=== PATIENT | female | born 1945 | race Caucasian/White ===

== ENCOUNTER 2023-10-12 09:27 | Inpatient (IN) ==
[2023-10-12] MEDS ORDERED: SODIUM CHLORIDE 0.9% 250 ML IV PRN (09:47)
[2023-10-12] MEDS ORDERED: PANTOprazole 40 MG in SYRINGE 0 ML IV ONE (09:47)
[2023-10-12] MEDS ORDERED: SODIUM CHLORIDE 0.9% 1,000 ML IV SCH (10:00)
--- NOTE | 2023-10-12 10:04 | Emergency Department Note ---
Impression & Plan Signs and symptoms of anemia, Exertional shortness of breath, Acute GI bleeding ED Provider Note NAME: HIMA LOVE AGE: 78 SEX: F : 1945 ARRIVES VIA: Walk-In INFORMANT: Patient ED PROVIDER(S): Jose Lord DO CHIEF COMPLAINT: weak HPI: Patient is a 78-year-old female who presents to the ER with a past medical history of of COPD, smoking, lung cancer with metastasis to the brain for weakness. She notes she has exertional shortness of breath and weakness which has been going on for the past several weeks. She was seen and evaluated here yesterday. She was referred back in today by her PCP as her hemoglobin was found to be 7 yesterday and dropped from tens. Denies any chest pain. No belly pain, nausea, vomiting, or diarrhea. Has been using Imodium for the diarrhea. Admits to blood in her stool intermittently and dark stool. ADDITIONAL HISTORY OBTAINED: Per HPI Chronic Medical/Social Conditions Affecting Care: Per HPI PAST MEDICAL HISTORY:See Below PAST SURGICAL HISTORY:See Below FAMILY HISTORY:See Below SOCIAL HISTORY:See Below HOME MEDICATIONS:See Below ALLERGIES:See Below VITALS:See Below PHYSICAL EXAMINATION: GENERAL: Sitting up in bed, alert, well appearing, well nourished, no distress, non-toxic EYE EXAM: normal conjunctiva. PERRL and EOM's grossly intact. OROPHARYNX: no exudate, no erythema, lips, buccal mucosa, and tongue normal and mucous membranes are moist NECK: supple, no nuchal rigidity, no adenopathy, non-tender LUNGS: Clear to auscultation. Normal chest wall mechanics HEART: no murmurs, S1 normal and S2 normal ABDOMEN: abdomen soft, non-tender, normo-active bowel sounds, no masses, no rebound or guarding. RECTAL: Heme positive as she gave a stool sample UPPER EXTREMITIES: upper extremities are grossly normal. LOWER EXTREMITIES: No pitting edema. NEURO EXAM: Normal sensorium, cranial nerves II-XII grossly intact, normal speech, no gross weakness of arms, no gross weakness of legs. MEDICAL DECISION MAKING: Patient is a 78-year-old female who presents the ER for above-stated complaint. IV was established blood work was obtained. Labs show no significant leukocytosis. Hemoglobin 7.4 down from baseline of 12. Platelets were low. INR unremarkable. BMP with mild hypokalemia at 3.3. Mag mildly low at 1.1. LFTs was unremarkable. Stool was C. difficile positive after admission. Patient was typed and crossed and given 2 units PRBCs while in the ER. I obtained consent. Discussed with the hospitalist minute for further workup. Consults/Care Managements Discussions: Per MDM Triage Nursing notes reviewed. Limited review of prior medical records performed Vital Signs: reviewed and remarkable for hypotension Differential diagnosis: Differential diagnosis includes etiologies such as diverticulitis, diverticulosis, AVM, coagulopathy, colitis, inflammatory bowel disease, malignancy, Wendy-Ross tear, esophagitis, peptic ulcer disease, variceal bleed, gastritis, epistaxis, fissure, hemorrhoids, as well as others were entertained. ER treatment provided: See below Diagnostics interpreted by me include EKG and cardiac monitoring as listed below: -Cardiac Monitoring: An order was placed for continuous cardiac monitoring. The monitor shows a rate of 90 with sinus rhythm. -ECG: none -Laboratory studies:Interpreted by me as stated above in MDM and shown below. Imaging studies: Xrays: As interpreted by me:none CTs show: CT of the head per my preliminary interpretation showed no obvious large bleed CT head per radiology showed no acute pathology Procedures:none Critical Care: I have personally spent 35 minutes of critical care time in the direct management of this patient. This includes bedside care, interpretation of diagnostic studies, and testing, discussion with consultants, patient, and family members, and other required patient management activities. This 35 minutes is in excess of all separately billable procedures. Past Med/Surg History Medical History CKD (chronic kidney disease) stage 3, GFR 30-59 ml/min CAD in [place] artery History of CVA (cerebrovascular accident) PVD (peripheral vascular disease) Subclavian arterial stenosis Metastatic lung cancer (metastasis from lung to other site) Ex-smoker Allergic rhinitis with postnasal drip COPD with emphysema Surgical History S/P cardiac cath 2006, 2007, 2015, 2018, 2019 Stents in 2009, 2010, 2019 S/P tonsillectomy and adenoidectomy History of hysterectomy S/P appendectomy S/P TAVR (transcatheter aortic valve replacement) Social History (Updated 10/12/23 @ 12:36 by Zoya Mckinley PA-C) Smoking Status: Never smoker Tobacco Type: Cigarettes Age Started Using Tobacco: 17; Age Quit Using Tobacco: 71; packs per day: 2; Hx Alcohol Use: Yes Alcohol type: wine Preferred Language: Mongolian Feels Safe at Home: Yes Allergies Allergies Allergy/AdvReac Type Severity Reaction Status Date / Time bee venom protein (honey bee) Allergy Severe Swelling Verified 10/12/23 11:54 of Lip/Tongue/Throat prednisone Allergy itchy Verified 10/12/23 11:54 macadamia Allergy Severe Swelling Uncoded 10/12/23 12:11 of Lip/Tongue/Throat Home Meds Home Medications Medication Instructions Recorded Confirmed acetaminophen 650 mg 650 mg PO Q8H PRN Pain 10/12/23 10/12/23 tablet,extended release albuterol sulfate 90 mcg/actuation 2 puff inhalation Q6 PRN Shortness 10/12/23 10/12/23 aerosol inhaler Of Breath Or Wheezing aspirin 81 mg tablet,delayed 81 mg PO DAILY 10/12/23 10/12/23 release clopidogrel 75 mg tablet 75 mg PO QAM 10/12/23 10/12/23 coenzyme Q10 100 mg capsule 100 mg PO DAILY 10/12/23 10/12/23 (CoQ-10) coffee extract 100 mg-phosphatidyl 1 cap PO DAILY 10/12/23 10/12/23 serine 100 mg capsule (Neuriva Original) cyanocobalamin (vitamin B-12) 100 100 mcg PO DAILY 10/12/23 10/12/23 mcg tablet dexamethasone 4 mg tablet 4 mg PO TID PRN .. 10/12/23 10/12/23 lidocaine-prilocaine 2.5 %-2.5 % 1 applic topical DIRECTED PRN 10/12/23 10/12/23 topical cream .Skin over mediport losartan 50 mg tablet 50 mg PO QAM 10/12/23 10/12/23 omeprazole 20 mg capsule,delayed 20 mg PO DAILY 10/12/23 10/12/23 release ondansetron HCl 8 mg tablet 8 mg PO Q8 PRN Nausea And Vomiting 10/12/23 10/12/23 prochlorperazine maleate 10 mg 10 mg PO Q6 PRN Nausea 10/12/23 10/12/23 tablet rosuvastatin 20 mg tablet 20 mg PO QAM 10/12/23 10/12/23 umeclidinium 62.5 mcg-vilanterol 1 inh inhalation DAILY 10/12/23 10/12/23 25 mcg/actuation powdr for inhalation (Anoro Ellipta) vit C 250 mg-E 90 mg-zinc 40 1 tab PO DAILY 10/12/23 10/12/23 mg-copper 1 ck-yropmn-wrrnbu chew tablet (PreserVision AREDS-2) Results & Data (ED) Vital Signs Vital Signs - 24 hr 10/12/23 09:36 10/12/23 11:49 10/12/23 11:50 Temperature 36.5 C Temperature Source Temporal Artery Scan Pulse Rate 102 H 85 Pulse Rate [Right Finger] 84 Pulse Rhythm Regular Regular Respiratory Rate 20 16 18 Respiratory Effort / Characteristics Non-Labored Spontaneous Non-Labored Spontaneous Respiratory Depth Normal Normal Blood Pressure 88/46 L Blood Pressure [Right Arm] 108/57 L Blood Pressure Mean 60 Blood Pressure Mean [Right Arm] 74 Pulse Oximetry 97 100 100 Oxygen Delivery Method Room Air Room Air Room Air Sepsis Recent Fever Within 48 Hours No Sepsis New/Unexplained Change in Mental Status No Sepsis Action Taken by Nursing No Action Required Laboratory Data 10/12/23 09:55 10/12/23 09:55 Lab Results 10/12/23 10/12/23 10/12/23 Range/Units 09:55 10:22 10:33 WBC 6.02 (4.8-10.8) K/ul RBC 2.31 L (4.20-5.40) M/uL Hgb 7.4 L (12.0-16.0) g/dl Hct 22.7 L (37.0-47.0) % MCV 98.3 (80.0-100.0) fL MCH 32.0 (25.0-34.0) pg MCHC 32.6 (32.0-36.0) g/dL RDW Std Deviation 45.3 (36.4-46.3) fL RDW Coeff of Bruno 13.0 (11.5-14.5) % Plt Count 84 L D (130-400) K/uL MPV 11.6 (9.4-12.4) fL Immature Gran % (Auto) 3.2 % Neut % (Auto) 58.4 % Lymph % (Auto) 18.6 % Brantley % (Auto) 18.1 % Eos % (Auto) 1.5 % Baso % (Auto) 0.2 % Neut # (Auto) 3.52 (1.40-6.50) K/uL Lymph # (Auto) 1.12 L (1.20-3.40) K/uL Brantley # (Auto) 1.09 H (0.11-0.59) K/uL Eos # (Auto) 0.09 (0.00-0.50) K/uL Baso # (Auto) 0.01 (0.00-0.20) K/uL Immature Gran # (Auto) 0.19 (0.01-0.20) K/uL Toxic Granulation 1+ Dohle Bodies 1+ Polychromasia 1+ PT 11.9 (9.0-12.0) Seconds INR 1.1 (0.9-1.1) APTT 30 (21-31) Seconds PTT Ratio 1.1 Sodium 137 (136-145) mmol/L Potassium 3.3 L (3.5-5.1) mmol/L Chloride 106 (98-107) mmol/L Carbon Dioxide 21 (21-32) mmol/L Anion Gap 10 (3-11) BUN 19 (6-23) mg/dl Creatinine 1.09 D (0.6-1.2) mg/dl Est Cr Clr Drug Dosing 37.1 ml/min Est GFR ( Amer) 56.7 ml/min Est GFR (Non-Af Amer) 48.9 ml/min BUN/Creatinine Ratio 17.4 (10-20) Glucose 105 H (70-99(Fasting)) mg/dl Calcium 8.1 L (8.6-10.3) mg/dl Magnesium 1.1 L (1.7-2.4) mg/dl Total Bilirubin 0.4 (0.2-1.0) mg/dl AST 21 (13-39) U/L ALT 12 (7-52) U/L Alkaline Phosphatase 76 (34-104) U/L Total Protein 5.9 L (6.0-8.3) gm/dl Albumin 3.2 L (3.4-5.0) gm/dl Globulin 2.7 (2.5-4.0) gm/dl Albumin/Globulin Ratio 1.2 (0.9-2) SARS-CoV-2, RNA, NAAT NEGATIVE (NEGATIVE) Blood Type O Positive Blood Type Recheck O Positive Antibody Screen NEGATIVE Crossmatch See Detail Administered Medications Discontinued Medications Sodium Chloride (Nss) 1,000 mls @ 999 mls/hr IV .Q1H1M LUCILLE Stop: 10/12/23 11:00 Last Infusion: 10/12/23 14:22 Dose: Infused Documented By: Admin: 10/12/23 11:40 Dose: 999 mls/hr Documented By: CHARMAINE Pantoprazole Sodium 40 mg/ (Syringe) 10 mls @ 5 mls/min IV NOW ONE Stop: 10/12/23 09:48 Last Admin: 10/12/23 11:41 Dose: 5 mls/min Documented By: CHARMAINE Sodium Chloride (Nss) 1,000 mls @ 999 mls/hr IV .Q1H1M LUCILLE Stop: 10/12/23 12:30 Last Infusion: 10/12/23 14:22 Dose: Infused Documented By: Admin: 10/12/23 11:40 Dose: 999 mls/hr Documented By: CHARMAINE Imaging Data Radiologist's Impression: Head CT 10/12/23 10:27 CT head/brain wo con CLINICAL HISTORY: 78 years-old Female with off balance w/ cancer. Acute dizziness TECHNIQUE: Multiple axial CT images of the head were obtained without contrast. A dose lowering technique was utilized adhering to the principles of ALARA. CT DOSE: 703.85 mGy.cm COMPARISON: Brain MRI 08/24/2023 FINDINGS: No acute intracranial hemorrhage, midline shift, hydrocephalus, acute territorial ischemia or abnormal extra-axial collection. Involutional changes with chronic microvascular ischemic disease. Encephalomalacia again noted within the left occipital lobe. Fluid noted enhancing intracranial metastasis are not visualized on this noncontrast study. No new areas of vasogenic edema identified. The calvarium is intact. Bilateral lens repair. The paranasal sinuses, mastoid air cells, and middle ear cavities are clear. IMPRESSION: 1. No acute intracranial abnormality. 2. The previously noted small enhancing intracranial metastasis described on the contrast-enhanced MRI from 08/24/2023 are not visualized on this noncontrast CT examination. 3. No new areas of vasogenic edema, significant mass effect or midline shift. 4. Chronic findings as above. ACT 112: Negative or not required by law. The above report was generated using voice recognition software. It may contain grammatical, syntax or spelling errors. Electronically signed by: Reji Stone M.D. 10/12/2023 10:56 AM Discharge Plan Visit Data Chief Complaint: Referred by Doctor Stated Complaint: BLOOD TRANSFUSION ED Provider: Jose Lord Discharge Problem: Signs and symptoms of anemia, Exertional shortness of breath, Acute GI bleeding
[2023-10-12 10:21] LABS: Hematocrit (blood only) 22.7 % (37.0-47.0); Hemoglobin 7.4 g/dl (12.0-16.0); Mean Corpuscular Hgb Conc 32.6 g/dL (32.0-36.0); Mean Corpuscular Volume 98.3 fL (80.0-100.0); Mean Platelet Volume 11.6 fL (9.4-12.4); Platelet Count 84 K/uL (130-400); RDW Standard Deviation 45.3 fL (36.4-46.3); Red Blood Count 2.31 M/uL (4.20-5.40); White Blood Count 6.02 K/ul (4.8-10.8)
[2023-10-12 10:39] LABS: Albumin Globulin Ratio 1.2 (0.9-2); Albumin Level 3.2 gm/dl (3.4-5.0); BUN Creatinine Ratio 17.4 (10-20); Bilirubin,Total 0.4 mg/dl (0.2-1.0); Calcium 8.1 mg/dl (8.6-10.3); Creatinine Clr Calc Pharmacy 37.1 ml/min; Est GFR (African American) 56.7 ml/min; Est GFR (Non-African American) 48.9 ml/min; Globulin 2.7 gm/dl (2.5-4.0); Potassium 3.3 mmol/L (3.5-5.1); Total Protein 5.9 gm/dl (6.0-8.3)
[2023-10-12 10:54] LABS: Basophils # (auto) 0.01 K/uL (0.00-0.20); Basophils % (auto) 0.2 %; Dohle Bodies 1+; Eosinophils # (auto) 0.09 K/uL (0.00-0.50); Eosinophils % (auto) 1.5 %; INR 1.1 (0.9-1.1); Immature Granulocytes # (auto) 0.19 K/uL (0.01-0.20); Immature Granulocytes % (auto) 3.2 %; Lymphocytes # (auto) 1.12 K/uL (1.20-3.40); Lymphocytes % (auto) 18.6 %; Monocytes # (auto) 1.09 K/uL (0.11-0.59); Monocytes % (auto) 18.1 %; Neutrophils # (auto) 3.52 K/uL (1.40-6.50); Neutrophils % (auto) 58.4 %; Partial Thromboplastin Ratio 1.1; Partial Thromboplastin Time 30 Seconds (21-31); Polychromasia 1+; Prothrombin Time 11.9 Seconds (9.0-12.0); Toxic Granulation 1+
--- NOTE | 2023-10-12 10:57 | CT Scan Report ---
CT head/brain wo con CLINICAL HISTORY: 78 years-old Female with off balance w/ cancer. Acute dizziness TECHNIQUE: Multiple axial CT images of the head were obtained without contrast. A dose lowering tech nique was utilized adhering to the principles of ALARA. CT DOSE: 703.85 mGy.cm COMPARISON: Brain MRI 08/24/2023 FINDINGS: No acute intracranial hemorrhage, midline shift, hydrocephalus, acute territorial ischemia or abnorma l extra-axial collection. Involutional changes with chronic microvascular ischemic disease. Encephalo malacia again noted within the left occipital lobe. Fluid noted enhancing intracranial metastasis are not visualized on this noncontrast study. No new areas of vasogenic edema identified. The calvarium is intact. Bilateral lens repair. The paranasal sinuses, mastoid air cells, and middle ear cavities are clear. IMPRESSION: 1. No acute intracranial abnormality. 2. The previously noted small enhancing intracranial metastasis described on the contrast-enhanced MR I from 08/24/2023 are not visualized on this noncontrast CT examination. 3. No new areas of vasogenic edema, significant mass effect or midline shift. 4. Chronic findings as above. ACT 112: Negative or not required by law. The above report was generated using voice recognition software. It may contain grammatical, syntax o r spelling errors. Electronically signed by: Reji Stone M.D. 10/12/2023 10:56 AM
--- OUTSIDE RECORDS SUMMARY | 2023-10-12 11:00 | External Medical Summary | Summary of Care ---
Author Name Unknown Organization [facility] Address [address] [place] [address] Phone [phone] Care Team Providers Care Supervisor Shop Name Role Phone Jennie Carbajal JULIANA Primary Care Provider [phone] Reason for Visit * Reason Onset Date Comments Emergency Department Follow-Up 10/10/2023 Encounter Details Date Type Department Care Team (Late st Contact Info) Description 10/10/2023 Telephone Family Practice [facility] [address] [place] [address] Carlos Le MD [address] [place] [id number] Emergency Department Follow-Up Allergies Active Allergy Reactions Criticality Noted Date Comments Bee Venom 04/25/2023 Macadamia Nut Oil Anaphylaxis High 04/03/2023 SEVERE Prednisone Itching 04/03/2023 documented as of this encounter (statuses as of 10/12/2023) Medications Medication Sig Dispensed Refills Start Date End Date Status Co Q-10 100 MG Oral Capsule Take 6 Capsules by mouth in the morning. 0 Active Neuriva Oral Capsule Take by mouth. 0 Active Acetaminophen ER 650 MG Oral Tablet Extended Release (Tylenol ER) Take 1 Tablet by mouth every 8 hours as needed. 0 Active PreserVision AREDS 2 Oral Tablet Chewable Take by mouth. 0 Active Aspirin 81 MG Oral Tablet Delayed Release TAKE ONE TABLET BY MOUTH IN THE MORNING 90 Tablet 3 04/03/2023 04/02/2024 Active Rosuvastatin Calcium 20 MG Oral Tablet (Crestor) TAKE ONE TABLET BY MOUTH everyday 90 Tablet 3 04/03/2023 04/02/2024 Active Metoprolol Succinate ER 25 MG Oral Tablet Extended Release 24 Hour (toPROL XL) TAKE ONE TABLET BY MOUTH IN THE MORNING 90 Tablet 3 04/03/2023 04/02/2024 Active Losartan Potassium 50 MG Oral Tablet (Cozaar) TAKE ONE TABLET BY MOUTH IN THE MORNING 90 Tablet 3 04/03/2023 04/02/2024 Active Cyanocobalamin 1000 MCG Oral Tablet Take 1 Tablet by mouth in the morning. 0 Active Albuterol Sulfate HFA 108 (90 Base) MCG/ACT Inhalation Aerosol Solution inhale 2 puffs by mouth every 6 hours As Needed for Shortness Of Breath Or Wheezing 18 g 3 04/26/2023 Active Anoro Ellipta 62.5-25 MCG/ACT Inhalation Aerosol Powder Breath Activated (umeclidinium-vilante rol) Inhale 1 Puff by mouth daily. 180 Each 1 04/26/2023 Active Clopidogrel Bisulfate 75 MG Oral Tablet (pLAVix) Take 1 Tablet by mouth in the morning. 90 Tablet 3 05/20/2023 Active Isosorbide Mononitrate ER 30 MG Oral Tablet Extended Release 24 Hour (Imdur)Indications:Co ronary artery disease involving [place] coronary artery of [place] heart without angina pectoris Take 0.5 Tablets by mouth in the morning. 45 Tablet 3 06/21/2023 Active Omeprazole 20 MG Oral Tablet Delayed Release Disintegrating Take by mouth. 0 Active Prochlorperazine Maleate 10 MG Oral Tablet (Compazine)Indication s:Small cell lung cancer (HCC) Take 1 Tablet by mouth every 6 hours as needed for Nausea. 30 Tablet 0 08/22/2023 Active Ondansetron HCl 8 MG Oral TabletIndications:Sma ll cell lung cancer (HCC) Take 1 Tablet by mouth every 8 hours as needed for Nausea. 30 Tablet 0 08/22/2023 Active dexAMETHasone 4 MG Oral Tablet (Decadron)Indications :Metastasis to brain (HCC) Take 1 Tablet by mouth in the morning and 1 Tablet at noon and 1 Tablet before bedtime. 40 Tablet 0 09/19/2023 Active Lidocaine-Prilocaine 2.5-2.5 % External Cream (Emla)Indications:Sma ll cell lung cancer (HCC) Apply topically to affected area as needed for Pain. APPLY TO SKIN OVER MEDIPORT & COVER 1HR PRIOR TO ACCESSING. 90 g 1 09/21/2023 Active documented as of this encounter (statuses as of 10/12/2023) Active Problems Problem Noted Date Diagnosed Date Lung cancer metastatic to brain 10/10/2023 COPD, moderate 10/10/2023 History of CVA (cerebrovascular accident) 2022 Chronic kidney disease, stage 3a 08/28/2023 Overview: Per CKD protocol PVD (peripheral vascular disease) 08/23/2023 Carotid stenosis, non-symptomatic, bilateral 05/2023 Subclavian arterial stenosis 08/23/2023 Encounter for antineoplastic chemotherapy 2022 Small cell lung cancer 08/22/2023 Coronary artery disease invo lving [place] coronary artery of [place] heart without angina pectoris 05/01/2023 S/P TAVR (transcatheter aortic valve replacement ) 05/01/2023 documented as of this encounter (statuses as of 10/12/2023) Resolved Problems Problem Noted Date Diagnosed Date Resolved Date Allergies 05/01/2023 10/10/2023 Elevated liver enzymes 05/01/202310/10 documented as of this encounter (statuses as of 10/12/2023) Immunizations Name Administration Dates Next Due COVID-19 mRNA, LNP-s, No Pre serve, 2-Dose Series (Moderna) 06/29/2021,06/02/2021 Seasonal Influenza Virus Vac cine, Unspecified Formulation 07/03/2014 Seasonal Influenza, Quadrivalent Hd (Fluzone Hd) 06/29/2023 TDAP (age 11 and older)(Adacel) 08/22/2013 Varicella Zoster Vaccine (Adult) 08/22/2013 documented as of this encounter Social History Tobacco Use Types Packs/Day Years Used Date Smoking Tobacco: Former Cigarettes 2 53 0 10/16/1961 - 10/16/2014 Alcohol Use Standard Drinks/Week Comments Yes 0 (1 standard drink = 0.6 oz pur e alcohol) daily Sex and Gender Information Value Date Recorded Sex Assigned at Not on file Gender Identity Not on file Sexual Orientation Not on file Job Start Date Occupation Industry Not on file Not on file Not on file documented as of this encounter Miscellaneous Notes * Telephone Encounter - Bernice Gonsalez OSA - 10/12/2023 8:51 AM EST LM for pt or EC to call back to schedule an ER f/u (ok to use hospital d/c visit type) * Telephone Encounter - Ravin James OSA - 10/11/2023 3:11 PM EST Patient needs ED Follow-up. Did patient decline to see other providers in their home clinic? : NO If New Patient - Were surrounding clinics offered? N/A Please see call details. * Telephone Encounter - Jennifer Peña LPN - 10/11/2023 8:48 AM EST Called pt, no answer. Left message that she should go to ER. Called Radha, Sibling. S/w brother in law. She thought his was taking her to [facility] now. I advised that was good, and that is where she should go. She needs IV fluids and we do not do that here.Also it was advised by Dr. Le and her Oncologist that she go to ER. * Telephone Encounter - Carlos Le MD - 10/10/2023 9:20 PM EST Call patient and have her go to the ER right now. Both our office and heme/onc recommended it and it appears she may not have gone. She has a fever and is decompensating. She has lung cancer with brain metastasis. Office visit today not appropriate. Dr. Le documented in this encounter Plan of Treatment Upcoming Encounters Date Type Department Care Team (Late st Contact Info) Description 10/18/2023 8:10 AM EST Laboratory [facility] [address] [place] [id number] [place], Lab Scenery [address] [facility] [place], [place] [address] 10/18/2023 9:00 AM EST Hem/Onc Treatment Hematology/Oncology Treatment, [place] [address] [place] [address] Rand[place], Chair 6 Hem Onc Scenery [address] [place], [place] [address] 10/19/2023 9:00 AM EST Hem/Onc Treatment Hematology/Oncology Treatment, [place] [address] [place] [address] Randee, Chair 6 Hem Onc Scenery [address] [place] [address] 10/20/2023 9:00 AM EST Hem/Onc Treatment Hematology/Oncology Treatment, [place] [address] [place] [address] Randee, Chair 3 Hem Onc Scenery [address] [place], [place] [address] 11/08/2023 8:30 AM EST Laboratory Laboratory [facility] [place] [address] [place], [place] [id number] Randee, Lab Scenery [address] [place], [place] [address] 11/08/2023 9:00 AM EST Office Visit Hematology/Oncology [facility] [place] [address] [place], [place] [address] Leny Harmon MD [address] [place], [place] [address] 11/08/2023 9:30 AM EST Hem/Onc Treatment Hematology/Oncology Treatment, [place] [address] [facility], [place] [address] 11/09/2023 9:00 AM EST Hem/Onc Treatment Hematology/Oncology Treatment, [place] [address] [place] [address] Randee, Chair 3 Hem Onc Scenery [address] [place], [place] [address] 11/10/2023 9:00 AM EST Hem/Onc Treatment Hematology/Oncology Treatment, [place] [address] [place] [address] Randee, Chair 3 Hem Onc Scenery [address] [place] [address] 12/26/2023 3:00 PM EDT Office Visit Family [facility] [address] [place] [address] Arcadio Gonsalez, [address] [place] [id number] Health Maintenance Due Date Last Done Comments Depression Screening 1957 Albumin/Creatinine Ratio 1964 Alpha-1 Antitrypsin 1964 CKD PHOS USE SMARTSET 61436 1964 Hepatitis C Screening 1963 DXA Scan 2011 Zoster Vaccines (1 of 2) 10/17/2013 08/22/2013 Pneumococcal Vaccine: 65+ Years (2 - PCV) 07/30/2014 07/30/2013 COVID-19 Vaccine (3 - Moderna risk series) 07/27/2021 06/29/2021, 06/02/2021 DTaP,Tdap,and Td Vaccines (2 - Td or Tdap) 08/22/2023 08/22/2013 GFR 03/23/2024 09/22/2023, 12/02/2023, 08/30/2023, Additional history exists O2 ASSESSMENT COMPLETED IN PAST YEAR FOR COPD 08/04/2024 08/04/2023 CKD HGB USE SMARTSET 13018 09/22/202409/22, 09/22/2023, 09/19/2023, Additional history exists Influenza Vaccine (FLU shot) Completed , 07/03/2014, 07/03/2014, Additional history exists GARDASIL-HPV IMMUNIZATION SERIES Aged Out No longer eligible based on patient's age to complete this topic Hepatitis B Aged Out No longer eligi ble based on patient's age to complete this topic MENINGOCOCCAL (MENACTRA/MENVEO) Aged Out No longer eligible based on patient's age to complete this topic documented as of this encounter Medical Devices Implanted Type Area Speech Correction Assistant Device Identifier Shelf Expiration Date Model / Serial / Lot Port Implant W/8f Poly Cath - [id number] Implanted:Qty : 1 on 09/12/2023 by Joaquin Stewart DO at OR [facility] Right: Chest CR BARD : PERIPHERAL VASCULAR [id number] 03/15/2025 [id number] / / [id number] documented as of this encounter Advance Directives Documents on File Type Date Recorded Patient Antique Dealer Expl anation Advance Directives and Living Will 08/15/2023 ADVANCE DIRECTIVE / LIVING WILL Care Teams Supervisor Shop Relationship Specialty Start Date End Date Jennie Carbajal CRNP [address] [place] [address] PCP - General Nurse Practitioner 04/03/23 documented as of this encounter
--- OUTSIDE RECORDS SUMMARY | 2023-10-12 11:00 | External Medical Summary | Summary of Care ---
Author Name Unknown Organization [facility] Address [address] [place] [address] Phone [phone] Care Team Providers Care Real Estate Lawyer Name Role Phone Jennie Carbajal JULIANA Primary Care Provider [phone]- [phone] Reason for Visit * Reason Onset Date Comments Emergency Department Follow-Up 10/10/2023 Encounter Details Date Type Department Care Team (Late st Contact Info) Description 10/10/2023 Telephone Family Practice [facility] [address] [place] [address] Carlos Le MD [address] [place] [address] Emergency Department Follow-Up Allergies Active Allergy Reactions Criticality Noted Date Comments Bee Venom 04/25/2023 Macadamia Nut Oil Anaphylaxis High 04/03/2023 SEVERE Prednisone Itching 04/03/2023 documented as of this encounter (statuses as of 10/11/2023) Medications Medication Sig Dispensed Refills Start Date [...] 24 Hour (Imdur)Indications:Co ronary artery disease involving [place] coronary artery of [place] heart without angina pectoris Take 0.5 Tablets [...] as of this encounter (statuses as of 10/11/2023) Active Problems Problem Noted Date Diagnosed Date Lung cancer metastatic to brain 10/10/2023 COPD, moderate 10/10/2023 History of CVA (cerebrovascular accident) 2022 Chronic kidney disease, stage 3a 08/28/2023 Overview: Per CKD protocol PVD (peripheral vascular disease) 08/23/2023 Carotid stenosis, non-symptomatic, bilateral 05/2023 Subclavian arterial stenosis 08/23/2023 Encounter for antineoplastic chemotherapy 2022 Small cell lung cancer 08/22/2023 Coronary artery disease invo lving [place] coronary artery of [place] heart without angina pectoris 05/01/2023 S/P TAVR (transcatheter aortic valve replacement ) 05/01/2023 documented as of this encounter (statuses as of 10/11/2023) Resolved Problems Problem Noted Date Diagnosed Date Resolved Date Allergies 05/01/2023 10/10/2023 Elevated liver enzymes 05/01/202310/10 documented as of this encounter (statuses as of 10/11/2023) Immunizations Name Administration Dates Next Due COVID-19 [...] encounter Miscellaneous Notes * Telephone Encounter - Ravin James OSA [...] She thought his was taking her to [facility] now. I advised that was good, [...] 10/18/2023 8:10 AM EST Laboratory Laboratory [facility] [address] [place] [id number] [place], Lab Scenery [address] [place] [address] 10/18/2023 9:00 AM EST Hem/Onc Treatment Hematology/Oncology Treatment, [place] [address] [place] [address] [place], Chair 6 Hem Onc Scenery [address] [place] [address] 10/19/2023 9:00 AM EST Hem/Onc Treatment Hematology/Oncology Treatment, [place] [address] [place] [address] Randee, Chair 6 Hem Onc Scenery [address] [place] [address] 10/20/2023 9:00 AM EST Hem/Onc Treatment Hematology/Oncology Treatment, [place] [address] [place] [address] Rand[place], Chair 3 Hem Onc Scenery [address] [place] [address] 11/08/2023 8:30 AM EST Laboratory Laboratory [facility] [place] [address] [place], [place] [id number] [place], Lab Scenery [address] [place] [address] 11/08/2023 9:00 AM EST Office Visit Hematology/Oncology [facility] [address] [place], [place] [address] Leny Harmon MD [address] [place], [place] [address] 11/08/2023 9:30 AM EST Hem/Onc Treatment Hematology/Oncology Treatment, [place] [address] [place] [address] 11/09/2023 9:00 AM EST Hem/Onc Treatment Hematology/Oncology Treatment, [place] [address] [place] [address] Rand[place], Chair 3 Hem Onc Scenery [address] [place] [address] 11/10/2023 9:00 AM EST Hem/Onc Treatment Hematology/Oncology Treatment, [place] [address] [place] [address] Rand[place], Chair 3 Hem Onc Scenery [address] [place] [address] 12/26/2023 3:00 PM EDT Office Visit Family Practice [facility] [address] [place] [address] Arcadio Gonsalez, [address] [place] [address] Health Maintenance Due Date Last Done Comments Depression Screening 1957 Albumin/Creatinine Ratio 1963 Alpha-1 Antitrypsin 1964 CKD PHOS USE SMARTSET 69565 1964 Hepatitis C Screening 1963 DXA Scan 2011 Zoster Vaccines (1 of 2) 10/17/2013 08/22/2013 Pneumococcal Vaccine: 65+ Years (2 - PCV) 07/30/2014 07/30/2013 COVID-19 Vaccine (3 - Moderna risk series) 07/27/2021 06/29/2021, 06/02/2021 DTaP,Tdap,and Td Vaccines (2 - Td or Tdap) 08/22/2023 08/22/2013 GFR 03/23/2024 09/22/2023, 12/0 02/2023, 08/30/2023, Additional history exists O2 ASSESSMENT COMPLETED IN PAST YEAR FOR COPD 08/04/2024 08/04/2023 CKD HGB USE SMARTSET 26410 09/22/202409/22, 09/22/2023, 09/19/2023, Additional history exists Influenza [...] this encounter Medical Devices Implanted Type Area Adolescent Psychiatrist Device Identifier Shelf Expiration Date Model / Serial / Lot Port Implant W/8f Poly Cath - [id number] Implanted:Qty : 1 on 09/12/2023 by Joaquin Stewart DO at OR [facility] Right: Chest CR BARD : PERIPHERAL VASCULAR [id number] 03/15/2025 [id number] / / [id number] documented as of this encounter Advance Directives Documents on File Type Date Recorded Patient Investigative Analyst Expl anation Advance Directives and Living Will 08/15/2023 ADVANCE DIRECTIVE / LIVING WILL Care Teams Real Estate Lawyer Relationship Specialty Start Date End Date Jennie Carbajal CRNP [address] [place] [id number] PCP - General Nurse Practitioner 04/03/23 documented as of this encounter
--- OUTSIDE RECORDS SUMMARY | 2023-10-12 11:00 | External Medical Summary | Summary of Care ---
Author Name Unknown Organization [facility] Address [address] [facility] [place] [address] Phone [phone] Care Team Providers Care Serologist Name Role Phone Jennie Carbajal JULIANA Primary Care Provider [phone]- [phone] Reason for Visit * Reason Onset Date Comments Emergency Department Follow-Up 10/10/2023 Encounter Details Date Type Department Care Team (Late st Contact Info) Description 10/10/2023 Telephone Family Practice [facility] [address] [place] [address] Carlos Le MD [address] [place] [address] Emergency Department Follow-Up Allergies Active Allergy Reactions [...] 24 Hour (Imdur)Indications:Co ronary artery disease involving [place] coronary artery of [place] heart without angina pectoris Take 0.5 Tablets [...] cancer 08/22/2023 Coronary artery disease invo lving [place] coronary artery of [place] heart without angina pectoris 05/01/2023 S/P TAVR [...] She thought his was taking her to [facility] now. I advised that was good, and [...] 10/18/2023 8:10 AM EST Laboratory Laboratory [facility] [place] [address] [place] [phone] [place], Lab Scenery [address] [place] [address] 10/18/2023 9:00 AM EST Hem/Onc Treatment Hematology/Oncology Treatment, [place] [address] [place] [address] Rand[place], Chair 6 Hem Onc Scenery [address] [place] [address] 10/19/2023 9:00 AM EST Hem/Onc Treatment Hematology/Oncology Treatment, [place] [address] [place] [address] Randee, Chair 6 Hem Onc Scenery [address] [place] [address] 10/20/2023 9:00 AM EST Hem/Onc Treatment Hematology/Oncology Treatment, [place] [address] [place] [address] Randee, Chair 3 Hem Onc Scenery [address] [place] [address] 11/08/2023 8:30 AM EST Laboratory Laboratory [facility] [place] [address] [place], [place] [phone] [place], Lab Scenery [address] [place] [address] 11/08/2023 9:00 AM EST Office Visit Hematology/Oncology [facility] [address] [place], [place] [address] Leny Harmon MD [address] [place], [place] [address] 11/08/2023 9:30 AM EST Hem/Onc Treatment Hematology/Oncology Treatment, [place] [address] [place] [address] 11/09/2023 9:00 AM EST Hem/Onc Treatment Hematology/Oncology Treatment, [place] [address] [place] [address] Randee, Chair 3 Hem Onc Scenery [address] [place] [address] 11/10/2023 9:00 AM EST Hem/Onc Treatment Hematology/Oncology Treatment, [place] [address] [place] [address] Randee, Chair 3 Hem Onc Scenery [address] [place] [address] 12/26/2023 3:00 PM EDT Office Visit Family Practice [facility] [address] [place] [address] Arcadio Gonsalez, [address] [place] [address] Health Maintenance Due Date Last Done Comments Depression Screening 1957 Albumin/Creatinine Ratio 1964 Alpha-1 Antitrypsin 1964 CKD PHOS USE SMARTSET 86714 1964 Hepatitis C Screening 1964 DXA Scan [...] COPD 08/04/2024 08/04/2023 CKD HGB USE SMARTSET 76826 09/22/202409/22, 09/22/2023, 09/19/2023, Additional history exists Influenza [...] this encounter Medical Devices Implanted Type Area Bookkeeping Clerk Device Identifier Shelf Expiration Date Model / Serial / Lot Port Implant W/8f Poly Cath - [id number] Implanted:Qty : 1 on 09/12/2023 by Joaquin Stewart DO at OR [facility] Right: Chest CR BARD : PERIPHERAL VASCULAR [id number] 03/15/2025 [id number] / / [id number] documented as of this encounter Advance Directives Documents on File Type Date Recorded Patient Manager Mission Expl anation Advance Directives and Living Will 08/15/2023 ADVANCE DIRECTIVE / LIVING WILL Care Teams Serologist Relationship Specialty Start Date End Date Jennie Carbajal CRNP [address] [place] [address] PCP - General Nurse Practitioner 04/03/23 documented as of this encounter
[2023-10-12] MEDS: SODIUM CHLORIDE 0.9% 1,000 ML IV SCH ×2 (11:40→19:14)
--- NOTE | 2023-10-12 12:20 | History & Physical Report ---
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 On work-up in the ED, she was noted to have a marked drop in H&H with heme positive stool on rectal exam. However, pt denies overt melena or hematochezia. Main GI complaint is diarrhea, which seems to be worse since course of Augmentin for pneumonia a few weeks ago. She is currently undergoing chemotherapy and immunotherapy for recently diagnosed small cell lung cancer that is metastatic to the brain. While a component of GI blood loss is not ruled out, acute anemia seems more likely due to current chemotherapy. - Admit to PCU - Transfuse two units of PRBCs as ordered by ED provider - symptomatic anemia, hx CAD s/p multiple stents - Monitor H&H for stability post-transfusion - Consult GI for recommendations on need for additional work-up - Clear liquid diet for now - Replete potassium and magnesium - ordered - Labs in AM - CBC, BMP, Mg - Fall precautions - Check stool for C. diff with diarrhea that is worse since recent course of antibiotics - Pantoprazole 40 mg BID for now - Hold aspirin and plavix for now but consider resuming if no overt signs of bleeding with pt's history of CAD/prior stents (2) Hypokalemia: (3) Diarrhea: (4) Metastatic lung cancer (metastasis from lung to other site): (5) CAD in poarch artery: (6) COPD with emphysema: (7) CKD (chronic kidney disease) stage 3, GFR 30-59 ml/min: (8) Hypomagnesemia: Plan Continue other home medications as appropriate. Pt seen and reviewed with collaborating physician, Dr. Tejada. Plan of care discussed and as outlined above. 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 Pt is currently undergoing chemotherapy and immunotherapy for metastatic lung cancer, with last treatment about two weeks. She has overall been tolerating the treatments but five days ago, she had the abrupt onset of fevers (99-100F), chills, sweats, fatigue, and worsened shortness of breath, especially with exertion. These symptoms continued for 2-3 days but then the fevers, chills, sweats seemed to improve although she was still extremely weak and tired. She was seen in the ED yesterday and thought to be dehydrated - she reports improvement in her symptoms with IVF. Her Hgb had dropped from 12 to 7.5 but pt declined transfusion and requested to be discharged home. This morning, she talked to her PCP/oncologist who recommended that she return to the ED for further evaluation of the new anemia. She is having increasing weakness and AKERS again this morning. She notes being diagnosed with pneumonia a few weeks ago, which was treated with Augmentin. She has had diarrhea from the cancer treatments but this has been worse since the Augmentin. She has had nausea and yellow watery diarrhea for the last few days. Denies hematochezia or melena although stool in the ED was reportedly heme positive. She has been taking Imodium BID for the diarrhea. Appetite is decreased. She notes a sore sensation in bilateral lower abdomen that is worse with movements. Cramping associated with the diarrhea. She does not recall her last colonoscopy but denies prior abnormalities on scope. No history of PUD - she does have acid reflux which is controlled on omeprazole. Allergies Allergy/AdvReac Type Severity Reaction Status Date / Time bee venom protein (honey bee) Allergy Severe Swelling Verified 10/12/23 11:54 of Lip/Tongue/Throat prednisone Allergy itchy Verified 10/12/23 11:54 macadamia Allergy Severe Swelling Uncoded 10/12/23 12:11 of Lip/Tongue/Throat Home Medications Medication Instructions Recorded Confirmed Type acetaminophen 650 mg 650 mg PO Q8H PRN Pain 10/12/23 10/12/23 History tablet,extended release albuterol sulfate 90 mcg/actuation 2 puff inhalation Q6 PRN Shortness 10/12/23 10/12/23 History aerosol inhaler Of Breath Or Wheezing aspirin 81 mg tablet,delayed 81 mg PO DAILY 10/12/23 10/12/23 History release clopidogrel 75 mg tablet 75 mg PO QAM 10/12/23 10/12/23 History coenzyme Q10 100 mg capsule 100 mg PO DAILY 10/12/23 10/12/23 History (CoQ-10) coffee extract 100 mg-phosphatidyl 1 cap PO DAILY 10/12/23 10/12/23 History serine 100 mg capsule (Neuriva Original) cyanocobalamin (vitamin B-12) 100 100 mcg PO DAILY 10/12/23 10/12/23 History mcg tablet dexamethasone 4 mg tablet 4 mg PO TID PRN .. 10/12/23 10/12/23 History lidocaine-prilocaine 2.5 %-2.5 % 1 applic topical DIRECTED PRN 10/12/23 10/12/23 History topical cream .Skin over mediport losartan 50 mg tablet 50 mg PO QAM 10/12/23 10/12/23 History omeprazole 20 mg capsule,delayed 20 mg PO DAILY 10/12/23 10/12/23 History release ondansetron HCl 8 mg tablet 8 mg PO Q8 PRN Nausea And Vomiting 10/12/23 10/12/23 History prochlorperazine maleate 10 mg 10 mg PO Q6 PRN Nausea 10/12/23 10/12/23 History tablet rosuvastatin 20 mg tablet 20 mg PO QAM 10/12/23 10/12/23 History umeclidinium 62.5 mcg-vilanterol 1 inh inhalation DAILY 10/12/23 10/12/23 History 25 mcg/actuation powdr for inhalation (Anoro Ellipta) vit C 250 mg-E 90 mg-zinc 40 1 tab PO DAILY 10/12/23 10/12/23 History mg-copper 1 [id number] chew tablet (PreserVision AREDS-2) Past Med/Surg History Medical History CKD (chronic kidney disease) stage 3, GFR 30-59 ml/min CAD in poarch artery History of CVA (cerebrovascular accident) PVD (peripheral vascular disease) Subclavian arterial stenosis Metastatic lung cancer (metastasis from lung to other site) Ex-smoker Allergic rhinitis with postnasal drip COPD with emphysema Surgical History S/P cardiac cath 2005, 2007, 2014, 2017, 2019 Stents in 2009, 2010, 2019 S/P tonsillectomy and adenoidectomy History of hysterectomy S/P appendectomy S/P TAVR (transcatheter aortic valve replacement) Social History (Updated 10/12/23 @ 12:36 by Zoya Mckinley PA-C) Smoking Status: Never smoker Tobacco Type: Cigarettes Age Started Using Tobacco: 17; Age Quit Using Tobacco: 71; packs per day: 2; Hx Alcohol Use: Yes Alcohol type: wine Preferred Language: Trinidadian Feels Safe at Home: Yes Review of Systems Review of Systems: All systems reviewed & are unremarkable except as noted in HPI & below Constitutional: + fatigue, + weakness and + anorexia Eyes: no diplopia Ear, Nose, Mouth, Throat: no nasal congestion and no nasal discharge Respiratory: + cough (chronic) and + dyspnea on exert ion Cardiovascular: no chest pain, no palpitations and no syncope Gastrointestinal: as per Subjective / HPI Genitourinary: no dysuria and no hematuria Musculoskeletal: no body aches Integumentary: no rash and no yellowing of the skin Neurologic: + generalized weakness; no syncope and n o headache(s) Physical Exam Physical Exam: General: awake, alert, NAD HEENT: no scleral icterus, slightly dry oral mucosa Neck: trachea midline Chest: port site right upper chest without tenderness or erythema Heart: RRR Lungs: mildly diminished but clear Abdomen: soft, mild bilateral LQ tenderness, +BS Extremities: no pedal edema, bilateral DP pulses 2+ and equal Skin: no jaundice Neurologic: moving all extremities, Ox3, no dysarthria or confusion Results & Data Results & Data Vital Signs (Past 12 Hours) Vital Signs Temp Pulse Pulse Resp BP BP Pulse Ox 10/12/23 11:50 85 18 100 10/12/23 11:49 84 16 108/57 L 100 10/12/23 09:36 36.5 C 102 H 20 88/46 L 97 O2 Del Method 10/12/23 11:50 Room Air 10/12/23 11:49 Room Air 10/12/23 09:36 Room Air Laboratory Results Laboratory Results - last 24 hr 10/12/23 10/12/23 10/12/23 09:55 10:22 10:33 WBC 6.02 RBC 2.31 L Hgb 7.4 L Hct 22.7 L MCV 98.3 MCH 32.0 MCHC 32.6 RDW Std Deviation 45.3 RDW Coeff of Bruno 13.0 Plt Count 84 L D MPV 11.6 Immature Gran % (Auto) 3.2 Neut % (Auto) 58.4 Lymph % (Auto) 18.6 Toole % (Auto) 18.1 Eos % (Auto) 1.5 Baso % (Auto) 0.2 Neut # (Auto) 3.52 Lymph # (Auto) 1.12 L Toole # (Auto) 1.09 H Eos # (Auto) 0.09 Baso # (Auto) 0.01 Immature Gran # (Auto) 0.19 Toxic Granulation 1+ Dohle Bodies 1+ Polychromasia 1+ PT 11.9 INR 1.1 APTT 30 PTT Ratio 1.1 Sodium 137 Potassium 3.3 L Chloride 106 Carbon Dioxide 21 Anion Gap 10 BUN 19 Creatinine 1.09 D Est Cr Clr Drug Dosing 37.1 Est GFR ( Amer) 56.7 Est GFR (Non-Af Amer) 48.9 BUN/Creatinine Ratio 17.4 Glucose 105 H Calcium 8.1 L Magnesium Pending Total Bilirubin 0.4 AST 21 ALT 12 Alkaline Phosphatase 76 Total Protein 5.9 L Albumin 3.2 L Globulin 2.7 Albumin/Globulin Ratio 1.2 SARS-CoV-2, RNA, NAAT NEGATIVE Blood Type O Positive Blood Type Recheck O Positive Antibody Screen NEGATIVE Crossmatch See Detail Diagnostic Findings Head CT 10/12/23 10:27 CT head/brain wo con CLINICAL HISTORY: 78 years-old Female with off balance w/ cancer. Acute dizziness TECHNIQUE: Multiple axial CT images of the head were obtained without contrast. A dose lowering technique was utilized adhering to the principles of ALARA. CT DOSE: 703.85 mGy.cm COMPARISON: Brain MRI 08/24/2023 FINDINGS: No acute intracranial hemorrhage, midline shift, hydrocephalus, acute territorial ischemia or abnormal extra-axial collection. Involutional changes with chronic microvascular ischemic disease. Encephalomalacia again noted within the left occipital lobe. Fluid noted enhancing intracranial metastasis are not visualized on this noncontrast study. No new areas of vasogenic edema identified. The calvarium is intact. Bilateral lens repair. The paranasal sinuses, mastoid air cells, and middle ear cavities are clear. IMPRESSION: 1. No acute intracranial abnormality. 2. The previously noted small enhancing intracranial metastasis described on the contrast-enhanced MRI from 08/24/2023 are not visualized on this noncontrast CT examination. 3. No new areas of vasogenic edema, significant mass effect or midline shift. 4. Chronic findings as above. ACT 112: Negative or not required by law. The above report was generated using voice recognition software. It may contain grammatical, syntax or spelling errors. Electronically signed by: Reji Stone M.D. 10/12/2023 10:56 AM Medications Administered Sodium Chloride (Nss) 1,000 mls @ 999 mls/hr IV .Q1H1M LUCILLE Stop: 10/12/23 12:30 Last Admin: 10/12/23 11:40 Dose: 999 mls/hr Documented By: CHARMAINE Discontinued Medications Sodium Chloride (Nss) 1,000 mls @ 999 mls/hr IV .Q1H1M LUCILLE Stop: 10/12/23 11:00 Last Admin: 10/12/23 11:40 Dose: 999 mls/hr Documented By: CHARMAINE Pantoprazole Sodium 40 mg/ (Syringe) 10 mls @ 5 mls/min IV NOW ONE Stop: 10/12/23 09:48 Last Admin: 10/12/23 11:41 Dose: 5 mls/min Documented By: CHARMAINE Code Status & VTE Plan VTE Prophylaxis Plan VTE Prophylaxis will be ordered: Yes Supervising Physician Co-Signing Physician Notes Attending addendum: The patient was seen and examined in emergency room She has been complaining of increasing shortness of breath for the last 1 week since she has had chemo and immunotherapy Denies any blood in stool and no history of hematemesis and melena Was in the ER yesterday with similar symptoms and was sent home with IV hydration Reactive hemoglobin of 7.4 with symptoms of anemia On examination Lying in bed comfortable Hemodynamically stable Chest-clear to auscultate bilateral Heart-S1-S2, regular Abdomen-benign Extremities-negative for any edema Her admission labs, imaging studies and EKG reviewed Has CLL with brain mets with ongoing chemo and radiation therapy Hemoglobin dropped from 12 to 7.4 with symptoms No evidence of any active GI bleed except weak positive Hemoccult and has been ongoing diarrhea Agree with blood transfusion Agree with assessment and plan as outlined above by CHANNING Munoz Dr (3) Diarrhea Diarrhea type: unspecified type Qualified Code(s): R19.7 - Diarrhea, unspecified (4) Metastatic lung cancer (metastasis from lung to other site) Laterality: unspecified laterality Qualified Code(s): C34.90 - Malignant neoplasm of unspecified part of unspecified bronchus or lung (6) COPD with emphysema Emphysema type: unspecified Qualified Code(s): J43.9 - Emphysema, unspecified (7) CKD (chronic kidney disease) stage 3, GFR 30-59 ml/min Chronic kidney disease stage 3 subtype: stage 3a (GFR 45-59) Qualified Code(s): N18.31 - Chronic kidney disease, stage 3a
[2023-10-12 12:39] LABS: Magnesium 1.1 mg/dl (1.7-2.4)
[2023-10-12] MEDS ORDERED: LOPERAMIDE HCL 2 MG CAP PO PRN (13:11)
[2023-10-12 14:12] LABS: Cdiff Toxin B Gene (2yr or >) Positive Cdiff Gene (Neg)
[2023-10-12 14:18] LABS: Cdiff Antigen Positive; Cdiff Toxin A+B Positive Cdiff Toxin (Negative)
[2023-10-12] MEDS ORDERED: LIDOCAINE/PRILOCAINE 2.5% EA CRM EXT PRN (16:46)
[2023-10-12] MEDS ORDERED: POTASSIUM CHLORIDE CRTAB 20 MEQ TABCR PO STA (16:46)
[2023-10-12] MEDS ORDERED: ALBUTEROL HFA 8 GM INHALER INH PRN (16:46)
[2023-10-12] MEDS ORDERED: PROCHLORPERAZINE MALEATE 10 MG TAB PO PRN (16:46)
[2023-10-12] MEDS ORDERED: ONDANSETRON 4 MG OD TAB PO PRN (16:57)
--- NOTE | 2023-10-12 17:20 | Electrocardiogram Report ---
Test Reason : Blood Pressure : / mmHG Vent. Rate : 092 BPM Atrial Rate : 092 BPM P-R Int : 140 ms QRS Dur : 084 ms QT Int : 380 ms P-R-T Axes : 009 071 056 degrees QTc Int : 469 ms Normal sinus rhythm Normal ECG When compared with ECG of 11-OCT-2023 10:07, Premature ventricular complexes are no longer Present Confirmed by Gary Buck ([id number]) on 10/12/2023 5:20:02 PM Referred By: REFERRED SELF Confirmed By:Maldonado Buck
[2023-10-12] MEDS: MAGNESIUM SULFATE / D5W 1 GM/100 ML BAG IV SCH ×3 (19:15→23:39)
--- OUTSIDE RECORDS SUMMARY | 2023-10-12 20:35 | External Medical Summary | Summary of Care ---
Author Name Unknown Organization [facility] Address [address] [place] [address] Phone [phone] Care Team Providers Care Resin Mixer Name Role Phone Jennie ChristiansonNP Primary Care Provider [phone] Encounter Details Date Type Department Care Team (Late st Contact Info) Description 10/07/2023 Refill Pharmacy Call Center [address] [place] [address] [facility] [address] [place] [address] Allergies Active Allergy Reactions Criticality Noted Date [...] IN THE MORNING 90 Tablet 3 04/03/2023 4 Active Rosuvastatin Calcium 20 MG Oral Tablet (Crestor) TAKE ONE TABLET BY MOUTH everyday 90 Tablet 3 04/03/2023 4 Active Metoprolol Succinate ER 25 MG Oral Tablet Extended Release 24 Hour (toPROL XL) TAKE ONE TABLET BY MOUTH IN THE MORNING 90 Tablet 3 04/03/2023 4 Active Losartan Potassium 50 MG Oral Tablet (Cozaar) TAKE ONE TABLET BY MOUTH IN THE MORNING 90 Tablet 3 04/03/2023 4 Active Cyanocobalamin 1000 MCG Oral Tablet Take 1 Tablet by mouth in the morning. 0 Active Albuterol Sulfate HFA 108 (90 Base) MCG/ACT Inhalation Aerosol Solution inhale 2 puffs by mouth every 6 hours As Needed for Shortness Of Breath Or Wheezing 18 g 3 04/26/2023 Active Clopidogrel Bisulfate 75 MG Oral Tablet (pLAVix) Take 1 Tablet by mouth in the morning. 90 Tablet 3 05/20/2023 Active Isosorbide Mononitrate ER 30 MG Oral Tablet Extended Release 24 Hour (Imdur)Indications:C oronary artery disease involving [place] coronary artery of [place] heart without angina pectoris Take 0.5 Tablets by mouth in the morning. 45 Tablet 3 06/21/2023 Active Omeprazole 20 MG Oral Tablet Delayed Release Disintegrating Take by mouth. 0 Active Prochlorperazine Maleate 10 MG Oral Tablet (Compazine)Indicatio ns:Small cell lung cancer (HCC) Take 1 Tablet by mouth every 6 hours as needed for Nausea. 30 Tablet 0 08/22/2023 Active Ondansetron HCl 8 MG Oral TabletIndications:Sm all cell lung cancer (HCC) Take 1 Tablet by mouth every 8 hours as needed for Nausea. 30 Tablet 0 08/22/2023 Active dexAMETHasone 4 MG Oral Tablet (Decadron)Indication s:Metastasis to brain (HCC) Take 1 Tablet by mouth in the morning and 1 Tablet at noon and 1 Tablet before bedtime. 40 Tablet 0 09/19/2023 Active Lidocaine-Prilocaine 2.5-2.5 % External Cream (Emla)Indications:Sm all cell lung cancer (HCC) Apply topically to affected area as needed for Pain. APPLY TO SKIN OVER MEDIPORT & COVER 1HR PRIOR TO ACCESSING. 90 g 1 09/21/2023 Active Anoro Ellipta 62.5-25 MCG/ACT Inhalation Aerosol Powder Breath Activated (umeclidinium-vilant magalys) Inhale 1 Puff by mouth daily. 180 Each 1 10/12/2023 Active Anoro Ellipta 62.5-25 MCG/ACT Inhalation Aerosol Powder Breath Activated (umeclidinium-vilant magalys) Inhale 1 Puff by mouth daily. 180 Each 1 04/26/2023 Discontinue d(Refill) documented as of this encounter (statuses as [...] cancer 08/22/2023 Coronary artery disease invo lving [place] coronary artery of [place] heart without angina pectoris 05/01/2023 S/P TAVR [...] encounter Miscellaneous Notes * Telephone Encounter - Jennie Christianson CRNP - 10/12/2023 8:55 AM ESTSigned Prescriptions: Disp Refills Anoro Ellipta 62.5-25 MCG/ACT Inhalation A*180 Ea*1 Sig: Inhale 1 Puff by mouth daily.Authorizing Provider: JENNIE CHRISTIANSON * Telephone Encounter - Rea Barrett RPh - 10/07/2023 1:05 PM EST Completed CMR with patient. Patient needs refill on Anora inhaler. documented in this encounter Plan of Treatment Upcoming Encounters Date Type Department Care Team (Late st Contact Info) Description 10/18/2023 8:10 AM EST Laboratory Laboratory [address] [place], [place] [id number] [place], Lab [address] [place], [place] [address] 10/18/2023 9:00 AM EST Hem/Onc Treatment Hematology/Oncology Treatment, [address], [place] [address] [place], Chair [address] Hem Onc [address] [place] [address] 10/19/2023 9:00 AM EST Hem/Onc Treatment Hematology/Oncology Treatment, [place] [address] [facility], [place] [address] [place], Chair 6 Hem Onc [address] [place] [address] 10/20/2023 9:00 AM EST Hem/Onc Treatment Hematology/Oncology Treatment, [place] [address] [place] [address] [place], Chair 3 Hem Onc Scenery [address] [place], [place] [address] 11/08/2023 8:30 AM EST Laboratory Laboratory [facility] [place] [address] [place] [id number] [place], Lab Scenery [address] [place], [place] [address] 11/08/2023 9:00 AM EST Office Visit Hematology/Oncology [facility] [place] [address] [place], [place] [address] Leny Harmon MD [address] [place], [place] [address] 11/08/2023 9:30 AM EST Hem/Onc Treatment Hematology/Oncology Treatment, [place] [address] [facility], [place] [address] 11/09/2023 9:00 AM EST Hem/Onc Treatment Hematology/Oncology Treatment, [place] [address] [facility], [place] [address] [place], Chair 3 Hem Onc Scenery [address] [facility] [place], [place] [address] 11/10/2023 9:00 AM EST Hem/Onc Treatment Hematology/Oncology Treatment, [place] [address] [place] [address] [place], Chair 3 Hem Onc Scenery [address] [place] [address] 12/26/2023 3:00 PM EDT [facility] [place] [address] Arcadio Gonsalez DO [address] [place] [address] Health Maintenance Due Date Last Done Comments Depression Screening 1957 Albumin/Creatinine Ratio 1964 Alpha-1 Antitrypsin 1964 CKD PHOS USE SMARTSET 13548 1964 Hepatitis C Screening 1964 DXA Scan 2011 Zoster Vaccines (1 of 2) 10/17/2013 08/22/2013 Pneumococcal Vaccine: 65+ Years (2 - PCV) 07/30/2014 07/30/2013 COVID-19 Vaccine (3 - Moderna risk series) 07/27/2021 06/29/2021, 06/02/2021 DTaP,Tdap,and Td Vaccines (2 - Td or Tdap) 08/22/2023 08/22/2013 GFR 03/23/2024 09/22/2023, 02/2023, 08/30/2023, Additional history exists O2 ASSESSMENT COMPLETED IN PAST YEAR FOR COPD 08/04/2024 08/04/2023 CKD HGB USE SMARTSET 10944 09/22/202409/22, 09/22/2023, 09/19/2023, Additional history exists Influenza [...] this encounter Medical Devices Implanted Type Area Land Economist Device Identifier Shelf Expiration Date Model / Serial / Lot Port Implant W/8f Poly Cath - [id number] Implanted:Qty : 1 on 09/12/2023 by Joaquin Stewart DO at OR [facility] Right: Chest CR BARD : PERIPHERAL VASCULAR [id number] 03/15/2025 [id number] / / [id number] documented as of this encounter Advance Directives Documents on File Type Date Recorded Patient Furniture Finisher Expl anation Advance Directives and Living Will 08/15/2023 ADVANCE DIRECTIVE / LIVING WILL Care Teams Resin Mixer Relationship Specialty Start Date End Date Jennie Christianson CRNP [address] [place] [address] PCP - General Nurse Practitioner 04/03/23 documented as of this encounter
[2023-10-12] MEDS: VANCOMYCIN HCL 125 MG/2.5ML SOLN PO SCH (20:42)
[2023-10-12] MEDS: CHERRY SYRUP 5 ML UDP PO SCH (20:42)
[2023-10-12] MEDS: UMECLIDINIUM/VILANTEROL 62.5/25MCG 7 PUFFS/INHALER INH SCH (20:43)
[2023-10-12] MEDS: PANTOprazole 40 MG in SYRINGE 0 ML IV SCH (21:59)
[2023-10-12] MEDS ORDERED: Nursing to Pharmacy Communication SCH (23:15)
[2023-10-13] MEDS: CHERRY SYRUP 5 ML UDP PO SCH ×4 (01:44→17:45)
[2023-10-13] MEDS: VANCOMYCIN HCL 125 MG/2.5ML SOLN PO SCH ×4 (01:44→17:44)
[2023-10-13 06:18] LABS: Calcium 8.1 mg/dl (8.6-10.3); Creatinine Clr Calc Pharmacy 40.6 ml/min; Est GFR (African American) 62.9 ml/min; Est GFR (Non-African American) 54.3 ml/min; Magnesium 1.8 mg/dl (1.7-2.4); Potassium 3.7 mmol/L (3.5-5.1)
[2023-10-13 06:37] LABS: Basophils # (auto) 0.03 K/uL (0.00-0.20); Basophils % (auto) 0.5 %; Eosinophils % (auto) 1.5 %; Hematocrit (blood only) 28.1 % (37.0-47.0); Hemoglobin 9.5 g/dl (12.0-16.0); Immature Granulocytes # (auto) 0.24 K/uL (0.01-0.20); Immature Granulocytes % (auto) 3.6 %; Lymphocytes % (auto) 13.6 %; Mean Corpuscular Hemoglobin 31.1 pg (25.0-34.0); Mean Corpuscular Hgb Conc 33.8 g/dL (32.0-36.0); Mean Corpuscular Volume 92.1 fL (80.0-100.0); Mean Platelet Volume 11.5 fL (9.4-12.4); Monocytes # (auto) 1.16 K/uL (0.11-0.59); Monocytes % (auto) 17.5 %; Neutrophils # (auto) 4.18 K/uL (1.40-6.50); Neutrophils % (auto) 63.3 %; Platelet Count 84 K/uL (130-400); RDW Coefficient of Variation 17.3 % (11.5-14.5); RDW Standard Deviation 56.8 fL (36.4-46.3); Red Blood Count 3.05 M/uL (4.20-5.40); White Blood Count 6.61 K/ul (4.8-10.8)
[2023-10-13] MEDS: CYANOCOBALAMIN (B-12) 100 MCG TABLET PO SCH (08:46)
[2023-10-13] MEDS: ROSUVASTATIN CALCIUM 20 MG TAB PO SCH (08:46)
[2023-10-13] MEDS: UMECLIDINIUM/VILANTEROL 62.5/25MCG 7 PUFFS/INHALER INH SCH (08:47)
[2023-10-13] MEDS: CEROVITE ADV FORMULA TAB PO SCH (08:47)
[2023-10-13] MEDS: PANTOprazole 40 MG in SYRINGE 0 ML IV SCH (08:48)
--- NOTE | 2023-10-13 11:16 | Hospitalist Progress Note ---
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 Symptomatic Anemia Decrease in hgb (from 12.2 to 7.5 ) Transfused two units of pRBCs as ordered by ED provider in the setting of symptomatic anemia, hx CAD s/p multiple stents Hgb currently back up to 9.5 GI consult, appreciate recs -advised that anemia is likely related to recent chemotherapy and not from GI bleeding as stools are yellow and green - can continue with pt's aspirin and plavix from a GI standpoint. -consider stopping only if overt GI bleeding develops -no further inpatient procedures needed Continue to monitor hgb with AM labs Transfuse as needed for hgb <7, or hgb <8 + symptoms Continue with formulary alternative to home omeprazole, po pantoprazole 40mg BID Home aspirin and plavix resumed per GI recs C difficile Infection Pt with frequent bouts of diarrhea C diff positive for gene and toxin Continue po Vancomycin 125mg q6h for 14 days Hypomagnesemia Hypokalemia Replete as needed Metastatic lung cancer (metastasis from lung to other site) mets to the brain on chemotherapy and immunotherapy, possible cause of current anemia HTN continue home losartan HLD continue home statin CAD s/p stent placement Continue home plavix and aspirin per GI recs CKD (chronic kidney disease) stage 3, GFR 30-59 ml/min Cr elevated at 1.47 on admission Diet: HH Code Status: DNR/DNI DVT Prophylaxis: SCDs, re-started on plavix and aspirin Dispo: PT/OT ordered Admission and Anticipated Discharge Date Admission Date: October 12, 2023 Subjective Pt seen while laying in bed. Stated that she had been up and moving to the bathroom and her SOB and dizziness had improved after her transfusions. States that the diarrhea had improved as well. Otherwise denied acute concerns. Review of Systems Review of Systems: All systems reviewed & are unremarkable except as noted in Subjective Physical Exam Physical Exam: General: Alert, oriented. No acute distress Skin: No noted rashes or bruises Psych: Appropriate mood and affect Neuro: No gross deficits while laying in bed Chest: Nontender to palpation. CV: murmur appreciated Resp: Breath sounds clear bilaterally, no increased effort of breathing. Abdomen: Soft, nontender, nondistended. Extremities: No edema in lower extremities bilaterally. Results & Data Results & Data Vital Signs (Past 12 Hours) Vital Signs Pulse Pulse Resp BP BP Pulse Ox O2 Del Method 10/13/23 11:00 86 16 136/76 95 Room Air 10/13/23 07:15 95 H 150/78 H 97 Room Air 10/13/23 07:06 88 10/13/23 04:00 91 H 22 154/80 H 95 Nasal Cannula 10/13/23 02:26 90 17 133/73 93 Nasal Cannula 10/13/23 00:41 90 10/13/23 00:00 90 22 139/73 95 Nasal Cannula 10/12/23 23:47 94 Nasal Cannula 10/12/23 23:46 88 L Room Air O2 Flow Rate 10/13/23 11:00 10/13/23 07:15 10/13/23 07:06 10/13/23 04:00 1 10/13/23 02:26 1 10/13/23 00:41 10/13/23 00:00 1 10/12/23 23:47 1 10/12/23 23:46 (3) Diarrhea Diarrhea type: unspecified type Qualified Code(s): R19.7 - Diarrhea, unspecified (4) Metastatic lung cancer (metastasis from lung to other site) Laterality: unspecified laterality Qualified Code(s): C34.90 - Malignant neoplasm of unspecified part of unspecified bronchus or lung (6) COPD with emphysema Emphysema type: unspecified Qualified Code(s): J43.9 - Emphysema, unspecified (7) CKD (chronic kidney disease) stage 3, GFR 30-59 ml/min Chronic kidney disease stage 3 subtype: stage 3a (GFR 45-59) Qualified Code(s): N18.31 - Chronic kidney disease, stage 3a
--- NOTE | 2023-10-13 12:22 | Gastrointestinal Consultation ---
Date of Consultation October 13, 2023 Assessment & Plan (1) Diarrhea: (2) Acute anemia: (3) Metastatic lung cancer (metastasis from lung to other site): (4) Clostridium difficile diarrhea: Pt is a 78 yo female w metastatic small cell lung ca on chemo + immunotherapy, who presented w weakness, AKERS, noted to have acute anemia and heme positive stools. She had been having diarrhea since she started chemo, but worsened since completion of Augmentin for pneumonia. No melena/BRBPR or other overt s/s of GI bleeding noted. Reports had previous EGD and colonoscopy 'years ago' which we don't have records for, and states these were 'normal'. Cdiff stool came back positive. - Monitor blood ct and transfuse prn - Vancomycin 125mg QID x 14 days - Anemia workup, suspect it may be related to her chemotherapy - Defer endoscopies at this time in light of Cdiff infection - Advance diet as tolerated - Supportive care and symptomatic management otherwise - Pls recall GI over the weekend if any question/concerns Supervising Physician Co-Signing Physician Notes I personally saw and evaluated the patient on 10/13/2023 with JULIANA Roman and agree with her findings and plan of care. 78 y/o F with metastatic lung cancer with brain mets on chemotherapy and immunotherapy admitted with diarrhea found to be + for C. diff. GI was consulted for anemia to rule out any GI bleeding. Patient reports 2 months of diarrhea but reports this significantly worsened a few weeks ago after completing a course of Augmentin for pneumonia. Reports having 4-5 bowel movements/daily that are yellow and green. Denies any hematemesis, melena, or hematochezia. Hgb on admission 7.4 from baseline of 12 in july but this 12 was prior to her starting any of her Chemotherapy. BUN normal at 11. Platelets 84. She was given 2 units PRBC with improvement in hgb to 9.5. She is on asa and plavix at home for history of CAD with multiple PCI and history of TAVR. She reports an EGD and colonoscopy many years ago done somewhere else that were normal but none since that time. No plan for any endoscopy at this time in absence of any overt GI bleeding. Recommend PO vancomycin for 14 days 125 mg QID for C. diff infection. Trend H/H and transfuse for hgb <7. Suspect anemia is related to recent chemotherapy and not from GI bleeding as stools are yellow and green. Ok to continue aspirin and plavix from a GI standpoint. Would only stop if overt GI bleeding develops. Gi will sign off but please call back with questions. Sandra Leiva DO Gastroenterology and Hepatology History of Present Illness Reason for Consultation: Anemia, Heme positive stools, diarrhea Requesting Physician: Dr. Vika Hussein Attending Physician: Dr. Sandra Leiva History of Present Illness Pt is a 78 yo female w PMHx of small cell lung ca mets to brain on chemotherapy, immunotherapy and will be starting XRT, CAD s/p stents, TAVR, COPD, CKD III, pneumonia, anemia, who presented to ED w c/o generalized weakness and AKERS. Pt was in ED a day before for dehydration, treated w IVF. However referred back by OP providers for new findings of anemia. Labs showed Hgb of 7.5, baseline of 12. Hgb up to 9.5 after 2U PRBC tranfusion. Plt 84, normal BUN/Cr. Pt has been having diarrhea >10 episodes daily since started chemotherapy, however it's worsened since she completed Augmentin for pneumonia few weeks ago. She has been taking Imodium to control the diarrhea. Denies any bloody stools or dark tarry stools. Stools were heme positive and tested positive for Cdiff. She denies any fever, chills, n/v, abd pain. Allergies Allergy/AdvReac Type Severity Reaction Status Date / Time bee venom protein (honey bee) Allergy Severe Swelling Verified 10/12/23 11:54 of Lip/Tongue/Throat prednisone Allergy itchy Verified 10/12/23 11:54 [place] Allergy Severe Swelling Uncoded 10/12/23 12:11 of Lip/Tongue/Throat Home Medications Medication Instructions Recorded Confirmed Type acetaminophen 650 mg 650 mg PO Q8H PRN Pain 10/12/23 10/12/23 History tablet,extended release albuterol sulfate 90 mcg/actuation 2 puff inhalation Q6 PRN Shortness 10/12/23 10/12/23 History aerosol inhaler Of Breath Or Wheezing aspirin 81 mg tablet,delayed 81 mg PO DAILY 10/12/23 10/12/23 History release clopidogrel 75 mg tablet 75 mg PO QAM 10/12/23 10/12/23 History coenzyme Q10 100 mg capsule 100 mg PO DAILY 10/12/23 10/12/23 History (CoQ-10) coffee extract 100 mg-phosphatidyl 1 cap PO DAILY 10/12/23 10/12/23 History serine 100 mg capsule (Neuriva Original) cyanocobalamin (vitamin B-12) 100 100 mcg PO DAILY 10/12/23 10/12/23 History mcg tablet dexamethasone 4 mg tablet 4 mg PO TID PRN .. 10/12/23 10/12/23 History lidocaine-prilocaine 2.5 %-2.5 % 1 applic topical DIRECTED PRN 10/12/23 10/12/23 History topical cream .Skin over mediport losartan 50 mg tablet 50 mg PO QAM 10/12/23 10/12/23 History omeprazole 20 mg capsule,delayed 20 mg PO DAILY 10/12/23 10/12/23 History release ondansetron HCl 8 mg tablet 8 mg PO Q8 PRN Nausea And Vomiting 10/12/23 10/12/23 History prochlorperazine maleate 10 mg 10 mg PO Q6 PRN Nausea 10/12/23 10/12/23 History tablet rosuvastatin 20 mg tablet 20 mg PO QAM 10/12/23 10/12/23 History umeclidinium 62.5 mcg-vilanterol 1 inh inhalation DAILY 10/12/23 10/12/23 History 25 mcg/actuation powdr for inhalation (Anoro Ellipta) vit C 250 mg-E 90 mg-zinc 40 1 tab PO DAILY 10/12/23 10/12/23 History mg-copper 1 ci-zqelmi-hrdsvc chew tablet (PreserVision AREDS-2) Patient History Medical History CKD (chronic kidney disease) stage 3, GFR 30-59 ml/min CAD in the [place] artery History of CVA (cerebrovascular accident) PVD (peripheral vascular disease) Subclavian arterial stenosis Metastatic lung cancer (metastasis from lung to other site) Ex-smoker Allergic rhinitis with postnasal drip COPD with emphysema Surgical History S/P cardiac cath 2006, 2007, 2015, 2018, 2019 Stents in 2009, 2011, 2019 S/P tonsillectomy and adenoidectomy History of hysterectomy S/P appendectomy S/P TAVR (transcatheter aortic valve replacement) Social History (Updated 10/12/23 @ 12:36 by Zoya Mckinley PA-C) Smoking Status: Former smoker Tobacco Type: Cigarettes Age Started Using Tobacco: 17; Age Quit Using Tobacco: 71; packs per day: 2; Second Hand Exposure: No; Do You Dip or Chew Tobacco: No; Hx Alcohol Use: Yes Alcohol type: wine Hx Substance Use: No Preferred Language: Arabic Communication Ability: Effective Medical Communication Specialist Required: No Beliefs That Will Affect Care: None Current Living Situation: Alone Other Information That Helps Us Care for You: No Feels Safe at Home: Yes Safety Concerns: Feels Safe At This Time Assistive Devices: None Review of Systems Review of Systems: All systems reviewed & are unremarkable except as noted in HPI & below Physical Exam Constitutional: WD/WN, vitals as above well groomed, cooperative and comfortable Eyes: PERRL, conjunctivae normal, anicteric sclerae ENMT: external ear and nose normal, oropharynx normal Respiratory: normal respiratory effort, lungs clear to auscultation Cardiovascular: RRR, no murmur, no edema Gastrointestinal (Abdomen): normal bowel sounds, soft, nontender, no hepatosplenomegaly Skin: no rashes, warm and dry no jaundice Psychiatric: A+Ox3, euthymic affect Lymphatic: no lymphedema Results & Data Vital Signs (Past 12 Hours) Vital Signs Pulse Pulse Resp BP BP Pulse Ox O2 Del Method 10/13/23 11:00 86 16 136/76 95 Room Air 10/13/23 07:15 95 H 150/78 H 97 Room Air 10/13/23 07:06 88 10/13/23 04:00 91 H 22 154/80 H 95 Nasal Cannula 10/13/23 02:26 90 17 133/73 93 Nasal Cannula 10/13/23 00:41 90 O2 Flow Rate 10/13/23 11:00 10/13/23 07:15 10/13/23 07:06 10/13/23 04:00 1 10/13/23 02:26 1 10/13/23 00:41 (1) Diarrhea Diarrhea type: unspecified type Qualified Code(s): R19.7 - Diarrhea, unspecified (3) Metastatic lung cancer (metastasis from lung to other site) Laterality: unspecified laterality Qualified Code(s): C34.90 - Malignant neoplasm of unspecified part of unspecified bronchus or lung
[2023-10-13] MEDS: CLOPIDOGREL BISULFATE 75 MG TAB PO SCH (20:58)
[2023-10-13] MEDS: ASPIRIN 81 MG ECTAB PO SCH (20:58)
[2023-10-13] MEDS: PANTOprazole 40 MG TAB PO SCH (20:58)
[2023-10-14] MEDS: CHERRY SYRUP 5 ML UDP PO SCH ×4 (00:01→16:52)
[2023-10-14] MEDS: VANCOMYCIN HCL 125 MG/2.5ML SOLN PO SCH ×4 (00:02→16:52)
[2023-10-14 05:52] LABS: Basophils # (auto) 0.03 K/uL (0.00-0.20); Basophils % (auto) 0.4 %; Eosinophils # (auto) 0.15 K/uL (0.00-0.50); Eosinophils % (auto) 2.2 %; Hematocrit (blood only) 31.5 % (37.0-47.0); Hemoglobin 10.5 g/dl (12.0-16.0); Immature Granulocytes # (auto) 0.28 K/uL (0.01-0.20); Immature Granulocytes % (auto) 4.1 %; Lymphocytes # (auto) 0.97 K/uL (1.20-3.40); Lymphocytes % (auto) 14.2 %; Mean Corpuscular Hemoglobin 30.9 pg (25.0-34.0); Mean Corpuscular Hgb Conc 33.3 g/dL (32.0-36.0); Mean Corpuscular Volume 92.6 fL (80.0-100.0); Mean Platelet Volume 11.2 fL (9.4-12.4); Monocytes # (auto) 1.15 K/uL (0.11-0.59); Monocytes % (auto) 16.8 %; Neutrophils # (auto) 4.27 K/uL (1.40-6.50); Neutrophils % (auto) 62.3 %; Platelet Count 110 K/uL (130-400); RDW Coefficient of Variation 16.6 % (11.5-14.5); RDW Standard Deviation 55.2 fL (36.4-46.3); White Blood Count 6.85 K/ul (4.8-10.8)
[2023-10-14 05:58] LABS: Albumin Globulin Ratio 1.1 (0.9-2); BUN Creatinine Ratio 8.7 (10-20); Bilirubin,Total 0.5 mg/dl (0.2-1.0); Calcium 8.6 mg/dl (8.6-10.3); Est GFR (Non-African American) 51.8 ml/min; Globulin 2.7 gm/dl (2.5-4.0); Magnesium 1.4 mg/dl (1.7-2.4); Phosphorus 3.6 mg/dl (2.5-4.9); Total Protein 5.7 gm/dl (6.0-8.3)
[2023-10-14] MEDS: MAGNESIUM SULFATE / D5W 1 GM/100 ML BAG IV SCH ×2 (07:37→10:02)
[2023-10-14] MEDS: LOSARTAN POTASSIUM 50 MG TAB PO SCH (08:28)
[2023-10-14] MEDS: CEROVITE ADV FORMULA TAB PO SCH (08:28)
[2023-10-14] MEDS: CLOPIDOGREL BISULFATE 75 MG TAB PO SCH (08:28)
[2023-10-14] MEDS: PANTOprazole 40 MG TAB PO SCH ×2 (08:28→20:44)
[2023-10-14] MEDS: ASPIRIN 81 MG ECTAB PO SCH (08:28)
[2023-10-14] MEDS: ROSUVASTATIN CALCIUM 20 MG TAB PO SCH (08:29)
[2023-10-14] MEDS: CYANOCOBALAMIN (B-12) 100 MCG TABLET PO SCH (08:29)
[2023-10-14] MEDS ORDERED: NON-FORMULARY MEDICATION (Omeprazole 20 mg Capsule,Delayed Release(Dr/Ec)) PO SCH (09:00)
[2023-10-14] MEDS: UMECLIDINIUM/VILANTEROL 62.5/25MCG 7 PUFFS/INHALER INH SCH (10:01)
--- NOTE | 2023-10-14 11:09 | Hospitalist Progress Note ---
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 Symptomatic Anemia Decrease in hgb (from 12.2 to 7.5 ) Transfused two units of pRBCs as ordered by ED provider in the setting of symptomatic anemia, hx CAD s/p multiple stents Hgb currently back up to 10.5 GI consult, appreciate recs -advised that anemia is likely related to recent chemotherapy and not from GI bleeding as stools are yellow and green - can continue with pt's aspirin and plavix from a GI standpoint. -consider stopping only if overt GI bleeding develops -no further inpatient procedures needed Continue to monitor hgb with AM labs Transfuse as needed for hgb <7, or hgb <8 + symptoms Continue with formulary alternative to home omeprazole, po pantoprazole 40mg BID Home aspirin and plavix resumed per GI recs 10/14- pt states comfortable being d/c in a day or 2, concerned about this happening once more. Hgb currently stable and continues to improve. C difficile Infection Pt with frequent bouts of diarrhea C diff positive for gene and toxin Continue po Vancomycin 125mg q6h for 14 days Currently controlled Hypomagnesemia Hypokalemia Replete as needed Metastatic lung cancer (metastasis from lung to other site) mets to the brain on chemotherapy and immunotherapy, possible cause of current anemia HTN continue home losartan HLD continue home statin CAD s/p stent placement Continue home plavix and aspirin per GI recs CKD (chronic kidney disease) stage 3, GFR 30-59 ml/min Cr elevated at 1.47 on admission Diet: Code Status: DNR/DNI DVT Prophylaxis: SCDs, re-started on plavix and aspirin Dispo: PT/OT ordered Admission and Anticipated Discharge Date Admission Date: October 12, 2023 Subjective Pt seen while laying in bed. States that the diarrhea has improved, last BM was the day she came in. Feeling like she is >90% back to baseline after the blood transfusions. States no longer dizzy or SOB with activity. Would like to know how to not let this happen again. Review of Systems Review of Systems: All systems reviewed & are unremarkable except as noted in Subjective Physical Exam Physical Exam: General: Alert, oriented. No acute distress Skin: No noted rashes or bruises Psych: Appropriate mood and affect Neuro: No gross deficits while laying in bed Chest: Nontender to palpation. CV: murmur appreciated Resp: Breath sounds clear bilaterally, no increased effort of breathing. Abdomen: Soft, nontender, nondistended. Extremities: No edema in lower extremities bilaterally. Results & Data Results & Data Vital Signs (Past 12 Hours) Vital Signs Temp Pulse Pulse Resp BP Pulse Ox O2 Del Method 10/14/23 08:00 Room Air 10/14/23 07:38 36.8 C 87 19 158/80 H 93 Room Air 10/14/23 07:28 88 10/14/23 02:56 37.5 C 89 18 145/79 H 90 Room Air 10/13/23 23:22 37.4 C 92 H 18 148/75 H 90 Room Air (3) Diarrhea Diarrhea type: unspecified type Qualified Code(s): R19.7 - Diarrhea, u nspecified (4) Metastatic lung cancer (metastasis from lung to other site) Laterality: unspecified laterality Qualified Code(s): C34.90 - Malignant neoplasm of unspecified part of unspecified bronchus or lung (6) COPD with emphysema Emphysema type: unspecified Qualified Code(s): J43.9 - Emphysema, unspecified (7) CKD (chronic kidney disease) stage 3, GFR 30-59 ml/min Chronic kidney disease stage 3 subtype: stage 3a (GFR 45-59) Qualified Co de(s): N18.31 - Chronic kidney disease, stage 3a
[2023-10-14] MEDS: METOPROLOL SUCC 25MG EXT REL TAB PO SCH (20:44)
[2023-10-15] MEDS: CHERRY SYRUP 5 ML UDP PO SCH ×5 (01:23→23:46)
[2023-10-15] MEDS: VANCOMYCIN HCL 125 MG/2.5ML SOLN PO SCH ×5 (01:23→23:47)
[2023-10-15 08:42] LABS: Hematocrit (blood only) 33.1 % (37.0-47.0); Hemoglobin 11.1 g/dl (12.0-16.0); Mean Corpuscular Hemoglobin 31.2 pg (25.0-34.0); Mean Corpuscular Hgb Conc 33.5 g/dL (32.0-36.0); Mean Platelet Volume 10.8 fL (9.4-12.4); Platelet Count 141 K/uL (130-400); RDW Coefficient of Variation 15.9 % (11.5-14.5); RDW Standard Deviation 53.2 fL (36.4-46.3); Red Blood Count 3.56 M/uL (4.20-5.40); White Blood Count 7.51 K/ul (4.8-10.8)
[2023-10-15 08:57] LABS: BUN Creatinine Ratio 9.2 (10-20); Calcium 8.5 mg/dl (8.6-10.3); Creatinine Clr Calc Pharmacy 41.5 ml/min; Est GFR (African American) 64.5 ml/min; Est GFR (Non-African American) 55.6 ml/min; Magnesium 1.4 mg/dl (1.7-2.4); Potassium 3.7 mmol/L (3.5-5.1)
[2023-10-15] MEDS: ROSUVASTATIN CALCIUM 20 MG TAB PO SCH (09:00)
[2023-10-15] MEDS: LOSARTAN POTASSIUM 50 MG TAB PO SCH (09:00)
[2023-10-15] MEDS: PANTOprazole 40 MG TAB PO SCH ×2 (09:00→20:34)
[2023-10-15] MEDS: ADVANCED PROBIOTIC 1250 MG CAPSULE PO SCH (09:00)
[2023-10-15] MEDS: CEROVITE ADV FORMULA TAB PO SCH (09:00)
[2023-10-15] MEDS: METOPROLOL SUCC 25MG EXT REL TAB PO SCH (09:00)
[2023-10-15] MEDS: CLOPIDOGREL BISULFATE 75 MG TAB PO SCH (09:00)
[2023-10-15] MEDS: ASPIRIN 81 MG ECTAB PO SCH (09:00)
[2023-10-15] MEDS: CYANOCOBALAMIN (B-12) 100 MCG TABLET PO SCH (09:00)
[2023-10-15] MEDS: UMECLIDINIUM/VILANTEROL 62.5/25MCG 7 PUFFS/INHALER INH SCH (09:01)
[2023-10-15] MEDS: ISOSORBIDE MONO EXTENDED REL 30 MG TABCR PO SCH (09:02)
[2023-10-15] MEDS ORDERED: MAGNESIUM SULFATE 50% 4 GM in SODIUM CHLORIDE 0.9% 1,000 ML IV SCH (12:00)
[2023-10-15] MEDS: MAGNESIUM SULFATE / D5W 1 GM/100 ML BAG IV SCH ×4 (12:55→18:32)
--- NOTE | 2023-10-15 17:40 | Hospitalist Progress Note ---
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 Symptomatic Anemia Decrease in hgb (from 12.2 to 7.5 ) Transfused two units of pRBCs as ordered by ED provider in the setting of symptomatic anemia, hx CAD s/p multiple stents Hgb currently back up to 10.5 GI consult, appreciate recs -advised that anemia is likely related to recent chemotherapy and not from GI bleeding as stools are yellow and green - can continue with pt's aspirin and plavix from a GI standpoint. -consider stopping only if overt GI bleeding develops -no further inpatient procedures needed Continue to monitor hgb with AM labs Transfuse as needed for hgb <7, or hgb <8 + symptoms Continue with formulary alternative to home omeprazole, po pantoprazole 40mg BID Home aspirin and plavix resumed per GI recs Hgb currently stable and continues to improve. C difficile Infection-diarrhea resolved Continue po Vancomycin 125mg q6h for 14 days Dyspnea on exertion Reports this is ongoing for 1 month. She is on chemotherapy and immunotherapy and had symptomatic anemia She also has a complex cardiac history She reports having an echo this admission but I don't see this ordered. For now, will start with a CXR. She is not requiring oxygen, speaks in full sentences and has no respiratory symptoms at rest. Echo recommended if symptoms don't improve after correction of anemia. Hypomagnesemia -repleted with 4gm IV today Metastatic lung cancer (metastasis from lung to other site) mets to the brain on chemotherapy and immunotherapy, possible cause of current anemia she does report some dysequilibrium at times which is known to her and not acute. HTN chronic, stable. continue home losartan HLD chronic, stable. continue home statin CAD s/p stent placement chronic, stable. Continue home plavix and aspirin per GI recs Acute kidney injury in setting of CKD (chronic kidney disease) stage 3, GFR 30- 59 ml/min Initial Cr elevated at 1.47 on admission, now back to baseline around 1.0. Diet: HH Code Status: DNR/DNI DVT Prophylaxis: SCDs, ambulation. No chemoprohylaxis given ongoing DAPT and recent acute drop in H/H requiring blood transfusion this admission. Dispo: to home in am, dc telemetry. I spent a total [id number] coordinating, documenting, and providing care for this patient excluding time spent in the performance of separately billed services Neeru Chambers DO [facility] and Anticipated Discharge Date Admission Date: October 12, 2023 Subjective 78-year-old female here for C. difficile infection. Patient denies any diarrhea today. She reports her abdominal is sensitive but not painful She is tolerating p.o. She reports fatigue and shortness of breath with exertion. She is hemodynamically stable and has no other concerns at this time other than her chemotherapy upcoming this week. Physical Exam Physical Exam: CONSTITUTIONAL: WNWD, vitals as above, generally well-appearing, NAD EYES: normal conjunctivae, no scleral icterus ENT: external ear and nose normal, MMM NECK: trachea midline RESPIRATORY: clear to auscultation bilaterally, no crackles, rales or wheezes, normal respiratory effort CARDIOVASCULAR: regular rate and rhythm, S1 and 2 heard without murmurs, gallops or rubs, no JVD, no peripheral edema CHEST: inspection of chest was normal GASTROINTESTINAL: soft, nontender, ND, no guarding MUSCULOSKELETAL: strength 5/5 throughout, head is normocephalic and atraumatic SKIN: warm and dry NEUROLOGIC: CN 2-12 grossly intact, no sensory deficit, normal cognition, normal speech, no tremor PSYCHIATRIC: alert cooperative and oriented to person, place and time. Euthymic mood, makes good eye contact, language grossly intact, recent and remote memory grossly intact. Results & Data Results & Data Vital Signs (Past 12 Hours) Vital Signs Temp Pulse Pulse Resp BP Pulse Ox O2 Del Method 10/15/23 15:54 36.8 C 80 18 126/69 93 Room Air 10/15/23 15:35 87 10/15/23 11:16 37.1 C 83 18 125/75 92 Room Air 10/15/23 07:30 85 10/15/23 07:15 36.6 C 89 18 116/74 92 Room Air Laboratory Results Short CBC 10/15/23 Range/Units 08:27 WBC 7.51 (4.8-10.8) K/ul Hgb 11.1 L (12.0-16.0) g/dl Hct 33.1 L (37.0-47.0) % Plt Count 141 (130-400) K/uL BMP 10/15/23 08:27 Sodium 137 Potassium 3.7 Chloride 103 Carbon Dioxide 25 BUN 9 Creatinine 0.98 Glucose 128 H Calcium 8.5 L Medications Administered Current Inpatient Medications Albuterol (Albuterol Hfa 8 Gm Inhaler) 2 puffs INH Q6 PRN PRN Reason: Shortness Of Breath Or Wheezing Stop: 11/11/23 16:45 Aspirin (Aspirin 81 Mg Ectab) 81 mg PO DAILY [facility] Stop: 11/12/23 19:59 Last Admin: 10/15/23 09:00 Dose: 81 mg Gonzalez Syrup (Gonzalez Syrup 5 Ml Udp) 5 ml PO Q6 [facility] Stop: 10/22/23 17:59 Last Admin: 10/15/23 13:22 Dose: 5 ml Clopidogrel Bisulfate (Clopidogrel Bisulfate 75 Mg Tab) 75 mg PO QAM [facility] Stop: 11/12/23 19:59 Last Admin: 10/15/23 09:00 Dose: 75 mg Cyanocobalamin (Cyanocobalamin (B-12) 100 Mcg Tablet) 100 mcg PO DAILY [facility] Stop: 11/12/23 08:59 Last Admin: 10/15/23 09:00 Dose: 100 mcg Magnesium Sulfate/Dextrose (Magnesium Sulfate / D5w) 1 gm in 100 mls @ 50 mls/hr IV Q2H [facility] Stop: 10/15/23 20:44 Last Admin: 10/15/23 16:31 Dose: 50 mls/hr Isosorbide Mononitrate (Isosorbide [place] Extended Rel 30 Mg Tabcr) 15 mg PO QAM [facility] Stop: 11/14/23 08:59 Last Admin: 10/15/23 09:02 Dose: Not Given Lactobacillus Acidophilus (Advanced Probiotic 1250 Mg Capsule) 2 cap PO DAILY [facility] Stop: 11/14/23 08:59 Last Admin: 10/15/23 09:00 Dose: 2 cap Lidocaine/Prilocaine (Lidocaine/Prilocaine 2.5% Ea Crm) 1 each EXT PRN PRN PRN Reason: Skin over mediport Stop: 11/11/23 16:45 Losartan Potassium (Losartan Potassium 50 Mg Tab) 50 mg PO QAM [facility] Stop: 11/13/23 08:59 Last Admin: 10/15/23 09:00 Dose: 50 mg Metoprolol Succinate (Metoprolol Succ 25mg Ext Rel Tab) 25 mg PO QAM [facility] Stop: 11/13/23 18:44 Last Admin: 10/15/23 09:00 Dose: 25 mg Multivitamins/Minerals (Cerovite Adv Formula Tab) 1 tab PO DAILY [facility] Stop: 11/12/23 08:59 Last Admin: 10/15/23 09:00 Dose: 1 tab Ondansetron HCl (Ondansetron 4 Mg Od Tab) 8 mg PO Q8 PRN PRN Reason: Nausea And Vomiting Stop: 11/11/23 16:56 Pantoprazole Sodium (Pantoprazole 40 Mg Tab) 40 mg PO BID [facility] Stop: 11/12/23 20:59 Last Admin: 10/15/23 09:00 Dose: 40 mg Prochlorperazine (Prochlorperazine Maleate 10 Mg Tab) 10 mg PO Q6 PRN PRN Reason: Nausea Stop: 11/11/23 16:45 Rosuvastatin Calcium (Rosuvastatin Calcium 20 Mg Tab) 20 mg PO QAM [facility] Stop: 11/12/23 08:59 Last Admin: 10/15/23 09:00 Dose: 20 mg Umeclidinium/Vilanterol (Umeclidinium/Vilanterol 62.5/25mcg 7 Puffs/Inhaler) 1 puffs INH DAILY [facility] Stop: 11/11/23 16:59 Last Admin: 10/15/23 09:01 Dose: 1 puffs Vancomycin HCl (Vancomycin Hcl 125 Mg/2.5ml Soln) 125 mg PO Q6 [facility] Stop: 10/22/23 17:59 Last Admin: 10/15/23 13:22 Dose: 125 mg (3) Metastatic lung cancer (metastasis from lung to other site) Laterality: unspecified laterality Qualified Code(s): C34.90 - Malignant neoplasm of unspecified part of unspecified bronchus or lung (5) COPD with emphysema Emphysema type: unspecified Qualified Code(s): J43.9 - Emphysema, unspecified (6) CKD (chronic kidney disease) stage 3, GFR 30-59 ml/min Chronic kidney disease stage 3 subtype: stage 3a (GFR 45-59) Qualified Code(s): N18.31 - Chronic kidney disease, stage 3a
--- NOTE | 2023-10-15 19:36 | XRay Report ---
SINGLE VIEW CHEST CLINICAL HISTORY: Dyspnea. Lung cancer. FINDINGS: An AP, portable, upright chest radiograph is compared to study dated 10/11/2023. Correlatio n is made with PET/CT dated 07/27/2023. A right internal jugular central venous infusion port is unch anged in position. There is evidence of previous cardiac valve surgery. The heart is enlarged noting atherosclerotic calcification of the thoracic aorta. The pulmonary vasculature is noncongested. Emphy sema and chronic interstitial thickening is similar to previous. Scarring/atelectasis is noted at the lung bases. No airspace consolidation or large pleural effusion is identified. No pneumothorax is se en. The bony thorax is grossly intact. IMPRESSION: 1. Cardiomegaly and emphysema with no acute cardiopulmonary abnormality identified. 2. Left perihilar and lower lobe pulmonary lesions seen on the prior PET examination are not well ass essed by x-ray. ACT 112: Negative or not required by law. Electronically signed by: Adolph Cash M.D. 10/15/2023 7:35 PM
[2023-10-16] MEDS: CHERRY SYRUP 5 ML UDP PO SCH ×2 (05:35→12:09)
[2023-10-16] MEDS: VANCOMYCIN HCL 125 MG/2.5ML SOLN PO SCH ×2 (05:36→12:09)
[2023-10-16 06:36] LABS: Hematocrit (blood only) 31.5 % (37.0-47.0); Hemoglobin 10.4 g/dl (12.0-16.0); Mean Corpuscular Hemoglobin 30.4 pg (25.0-34.0); Mean Corpuscular Volume 92.1 fL (80.0-100.0); Mean Platelet Volume 11.2 fL (9.4-12.4); Platelet Count 182 K/uL (130-400); RDW Coefficient of Variation 15.4 % (11.5-14.5); RDW Standard Deviation 51.8 fL (36.4-46.3); Red Blood Count 3.42 M/uL (4.20-5.40); White Blood Count 6.28 K/ul (4.8-10.8)
[2023-10-16 06:55] LABS: BUN Creatinine Ratio 10.5 (10-20); Calcium 8.6 mg/dl (8.6-10.3); Creatinine Clr Calc Pharmacy 38.7 ml/min; Est GFR (African American) 59.3 ml/min; Est GFR (Non-African American) 51.2 ml/min; Magnesium 2.2 mg/dl (1.7-2.4); Potassium 4.4 mmol/L (3.5-5.1)
[2023-10-16] MEDS: ADVANCED PROBIOTIC 1250 MG CAPSULE PO SCH (08:15)
[2023-10-16] MEDS: CEROVITE ADV FORMULA TAB PO SCH (08:15)
[2023-10-16] MEDS: ISOSORBIDE MONO EXTENDED REL 30 MG TABCR PO SCH (08:16)
[2023-10-16] MEDS: LOSARTAN POTASSIUM 50 MG TAB PO SCH (08:16)
[2023-10-16] MEDS: CYANOCOBALAMIN (B-12) 100 MCG TABLET PO SCH (08:16)
[2023-10-16] MEDS: ROSUVASTATIN CALCIUM 20 MG TAB PO SCH (08:16)
[2023-10-16] MEDS: METOPROLOL SUCC 25MG EXT REL TAB PO SCH (08:16)
[2023-10-16] MEDS: ASPIRIN 81 MG ECTAB PO SCH (08:16)
[2023-10-16] MEDS: CLOPIDOGREL BISULFATE 75 MG TAB PO SCH (08:17)
[2023-10-16] MEDS: UMECLIDINIUM/VILANTEROL 62.5/25MCG 7 PUFFS/INHALER INH SCH (08:22)
[2023-10-16] MEDS ORDERED: PANTOprazole 40 MG TAB PO SCH (09:00)
--- NOTE | 2023-10-16 13:46 | Discharge Summary ---
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 Pt is currently undergoing chemotherapy and immunotherapy for metastatic lung cancer, with last treatment about two weeks. She has overall been tolerating the treatments but five days ago, she had the abrupt onset of fevers (99-100F), chills, sweats, fatigue, and worsened shortness of breath, especially with exertion. These symptoms continued for 2-3 days but then the fevers, chills, sweats seemed to improve although she was still extremely weak and tired. She was seen in the ED yesterday and thought to be dehydrated - she reports improvement in her symptoms with IVF. Her Hgb had dropped from 12 to 7.5 but pt declined transfusion and requested to be discharged home. This morning, she talked to her PCP/oncologist who recommended that she return to the ED for further evaluation of the new anemia. She is having increasing weakness and AKERS again this morning. She notes being diagnosed with pneumonia a few weeks ago, which was treated with Augmentin. She has had diarrhea from the cancer treatments but this has been worse since the Augmentin. She has had nausea and yellow watery diarrhea for the last few days. Denies hematochezia or melena although stool in the ED was reportedly heme positive. She has been taking Imodium BID for the diarrhea. Appetite is decreased. She notes a sore sensation in bilateral lower abdomen that is worse with movements. Cramping associated with the diarrhea. She does not recall her last colonoscopy but denies prior abnormalities on scope. No history of PUD - she does have acid reflux which is controlled on omeprazole. Admission Exam Per Admitting Provider General: awake, alert, NAD HEENT: no scleral icterus, slightly dry oral mucosa Neck: trachea midline Chest: port site right upper chest without tenderness or erythema Heart: RRR Lungs: mildly diminished but clear Abdomen: soft, mild bilateral LQ tenderness, +BS Extremities: no pedal edema, bilateral DP pulses 2+ and equal Skin: no jaundice Neurologic: moving all extremities, Ox3, no dysarthria or confusion Principal Dx & Hospital Course #1 = Principal Diagnosis (1) Clostridium difficile diarrhea: (2) Acute anemia: (3) Metastatic lung cancer (metastasis from lung to other site): (4) CAD in [place] artery: (5) COPD with emphysema: (6) CKD (chronic kidney disease) stage 3, GFR 30-59 ml/min: (7) Hypomagnesemia: Plan This is a 78 y/o female with 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 Symptomatic Anemia Decrease in hgb (from 12.2 to 7.5 ) Transfused two units of pRBCs as ordered by ED provider in the setting of sym ptomatic anemia, hx CAD s/p multiple stents Hgb improved to 10.5 GI consult, appreciate recs -advised that anemia is likely related to recent chemotherapy and not from GI bleeding as stools are yellow and green - can continue with pt's aspirin and plavix from a GI standpoint. -consider stopping only if overt GI bleeding develops -no further inpatient procedures needed Continue to monitor hgb with AM labs Transfuse as needed for hgb <7, or hgb <8 + symptoms Continue with formulary alternative to home omeprazole, po pantoprazole 40mg BID Advised pt against use of PPI with h/o c diff. Home aspirin and plavix resumed per GI recs Hgb currently stable and continues to improve. C difficile Infection-diarrhea resolved Continue po Vancomycin 125mg q6h for 14 days Dyspnea on exertion Reports this is ongoing for 1 month. She is on chemotherapy and immunotherapy and had symptomatic anemia She also has a complex cardiac history She reports having an echo this admission but I don't see this ordered. For now, will start with a CXR. She is not requiring oxygen, speaks in full sentences and has no respiratory symptoms at rest. Echo recommended if symptoms don't improve after correction of anemia. Hypomagnesemia -2/2 GI losses and chemotherapy--repleted with 4gm IV Metastatic lung cancer (metastasis from lung to other site) mets to the brain on chemotherapy and immunotherapy, possible cause of current anemia she does report some dysequilibrium at times which is known to her and not acute. HTN chronic, stable. continue home losartan HLD chronic, stable. continue home statin CAD s/p stent placement chronic, stable. Continue home plavix and aspirin per GI recs Acute kidney injury in setting of CKD (chronic kidney disease) stage 3, GFR 30- 59 ml/min Initial Cr elevated at 1.47 on admission, resolved to baseline around 1.0. At time of discharge she had no evidence of diarrhea, she was hemodynamically stable and afebrile and oxygenating well on room air. She was tolerating p.o. She was mentating and ambulating at baseline. Close follow-up with oncology for next chemotherapy trial after antibiotic treatment. Close primary care follow- up recommended Discharge Exam CONSTITUTIONAL: WNWD, vitals as above, generally well-appearing, NAD EYES: normal conjunctivae, no scleral icterus ENT: external ear and nose normal, MMM NECK: trachea midline RESPIRATORY: clear to auscultation bilaterally, no crackles, rales or wheezes, normal respiratory effort CARDIOVASCULAR: regular rate and rhythm, S1 and 2 heard without murmurs, gallops or rubs, no JVD, no peripheral edema CHEST: inspection of chest was normal GASTROINTESTINAL: soft, nontender, ND, no guarding MUSCULOSKELETAL: strength 5/5 throughout, head is normocephalic and atraumatic SKIN: warm and dry NEUROLOGIC: CN 2-12 grossly intact, no sensory deficit, normal cognition, normal speech, no tremor PSYCHIATRIC: alert cooperative and oriented to person, place and time. Euthymic mood, makes good eye contact, language grossly intact, recent and remote memory grossly intact. Updated Medication List Medication Instructions Recorded Confirmed Type acetaminophen 650 mg 650 mg PO Q8H PRN Pain 10/12/23 10/12/23 History tablet,extended release albuterol sulfate 90 mcg/actuation 2 puff inhalation Q6 PRN Shortness 10/12/23 10/12/23 History aerosol inhaler Of Breath Or Wheezing aspirin 81 mg tablet,delayed 81 mg PO DAILY 10/12/23 10/12/23 History release clopidogrel 75 mg tablet 75 mg PO QAM 10/12/23 10/12/23 History coenzyme Q10 100 mg capsule 100 mg PO DAILY 10/12/23 10/12/23 History (CoQ-10) coffee extract 100 mg-phosphatidyl 1 cap PO DAILY 10/12/23 10/12/23 History serine 100 mg capsule (Neuriva Original) cyanocobalamin (vitamin B-12) 100 100 mcg PO DAILY 10/12/23 10/12/23 History mcg tablet dexamethasone 4 mg tablet 4 mg PO TID PRN .. 10/12/23 10/12/23 History lidocaine-prilocaine 2.5 %-2.5 % 1 applic topical DIRECTED PRN 10/12/23 10/12/23 History topical cream .Skin over mediport losartan 50 mg tablet 50 mg PO QAM 10/12/23 10/12/23 History omeprazole 20 mg capsule,delayed 20 mg PO DAILY 10/12/23 10/12/23 History release ondansetron HCl 8 mg tablet 8 mg PO Q8 PRN Nausea And Vomiting 10/12/23 10/12/23 History prochlorperazine maleate 10 mg 10 mg PO Q6 PRN Nausea 10/12/23 10/12/23 History tablet rosuvastatin 20 mg tablet 20 mg PO QAM 10/12/23 10/12/23 History vit C 250 mg-E 90 mg-zinc 40 1 tab PO DAILY 10/12/23 10/12/23 History mg-copper 1 fc-qugort-kyigay chew tablet (PreserVision AREDS-2) isosorbide mononitrate 30 mg 15 mg PO QAM 10/14/23 10/14/23 History tablet,extended release 24 hr metoprolol succinate 25 mg 25 mg PO QAM 10/14/23 10/14/23 History tablet,extended release 24 hr umeclidinium 62.5 mcg-vilanterol 1 inh inhalation DAILY #60 ea 10/16/23 Rx 25 mcg/actuation powdr for inhalation (Anoro Ellipta) vancomycin 125 mg capsule 125 mg PO Q6H #44 caps 10/16/23 Rx (Vancocin) Hospital Stay Data Consultations 10/12/23 11:15 ED Decision to Admit Stat 10/12/23 16:46 Consult Gastroenterology Routine Diagnostic Imagining Performed 10/12/23 10:27 CT head/brain wo con Stat Pending Results Patient Have Any Pending Studies at Discharge: No Discharge Instructions Given to Patient (Per Discharging Provider) Please take all medications as instructed on discharge as below. You have been diagnosed with a diarrheal infection called C. difficile. This is contagious while you still have diarrhea. Please ensure you perform good handwashing after using the restroom and prior to food preparation. Toilet in a separate bathroom until symptoms are resolved to prevent the spread to others in the household. Please refer to www.CDC.gov for additional information on this topic. You will need a total of 14 days of vancomycin to complete the course. Including what you took in the hospital. Please follow-up with oncology and PCP within a week to touch base after hospitalization and to consider repeat complete blood count and chemistry panel check. Although your C. difficile infection is likely secondary to antibiotic use, medications like proton pump inhibitors also may contribute to this infection. Please consider the need for continued use of omeprazole with your primary care physician on follow-up. It was a pleasure taking care of you! Please call if you have any questions or problems. You can reach a [facility] hospitalist on duty at [facility] 24 hours a day by calling [phone]. Take care of yourself. Neeru Chambers, [facility] Hospitalist Total Time Total Time Spent Total Time Spent (In Minutes): 60
[2023-10-16] MEDS ORDERED: HEPARIN 100 UNIT/ML 5ML FLUSH ONE (14:47)
== END 2023-10-16 15:01 | disposition home or self-care (01) | DRG 372 ==
LOC: ED 09:27 → SUATTDRO 12:13 → EDINP 12:13 → 2S 10-13 16:45 → 3N 10-15 23:31